=== PATIENT | male | born 1945 | race Caucasian/White ===

== ENCOUNTER 2016-10-13 02:03 | Inpatient (IN) | payer OTHER ==
[~2016-10-13] VITALS: Ht 185.4 cm; Wt 79.1 kg
[2016-10-13] VITALS (24 sets, daily range): BP systolic 81–140; BP diastolic 49–68; PULSE 80–87; RESP 10–24; Ht 185.4 cm; Wt 79.1 kg
[2016-10-13] MEDS ORDERED: VAN120L GTB (03:31)
[2016-10-13] MEDS ORDERED: ENOX80DI2 SC (03:31)
[2016-10-13] MEDS ORDERED: [UNRECOGNIZED DRUG - CODE] PO (03:31)
[2016-10-13] MEDS ORDERED: PRED10TA GTB (03:31)
[2016-10-13] MEDS ORDERED: ALBU2.5V3 NEB ×2 (03:31)
[2016-10-13] MEDS ORDERED: LISI2.5T59 GTB (03:31)
[2016-10-13] MEDS ORDERED: ONDA4SOL2 IV (03:31)
[2016-10-13] MEDS ORDERED: [UNRECOGNIZED DRUG - CODE] IV (03:31)
[2016-10-13] MEDS ORDERED: LACT1CAP57 GTB (03:31)
[2016-10-13] MEDS ORDERED: LANS30CA GTB (03:31)
[2016-10-13] MEDS ORDERED: DOCU-159 GTB (03:31)
[2016-10-13] MEDS ORDERED: [UNRECOGNIZED DRUG - CODE] IV (03:31)
[2016-10-13] MEDS ORDERED: ALLO300T46 GTB (03:31)
[2016-10-13] MEDS ORDERED: MORP2DIS2 IV (03:31)
[2016-10-13] MEDS ORDERED: POLY17PO6 PO (03:31)
[2016-10-13] MEDS ORDERED: IPRA3AMP INHALATION (03:31)
[2016-10-13] MEDS ORDERED: ZINC50TA2 PO (03:31)
[2016-10-13] MEDS ORDERED: CARV3.1260 GTB (03:31)
[2016-10-13] MEDS ORDERED: NYST1POW22 TOPICAL (03:31)
[2016-10-13] MEDS ORDERED: ZINC220T GTB (03:31)
[2016-10-13] MEDS ORDERED: ACET325S PO (03:31)
[2016-10-13] MEDS ORDERED: ZOLP5TAB GTB (03:31)
[2016-10-13] MEDS ORDERED: CHLO118L3 ORAL (03:31)
[2016-10-13] MEDS ORDERED: ASCO500S2 GTB (03:31)
[2016-10-13] MEDS ORDERED: MELA5TAB4 G-TUBE (03:31)
[2016-10-13] MEDS ORDERED: LORAZEPAM 2 MG INJ IV PRN (04:00)
[2016-10-13] MEDS ORDERED: ZOLPIDEM 5 MG TAB GTB PRN (04:00)
[2016-10-13] MEDS ORDERED: ACETAMINOPHEN 650MG/20.3ML CUP PO PRN (04:00)
[2016-10-13] MEDS ORDERED: NON-FORMULARY/PATIENT OWN MED (Melatonin 5 MG) G-TUBE PRN (04:00)
[2016-10-13] MEDS ORDERED: ONDANSETRON 4 MG TAB GTB PRN (04:00)
[2016-10-13] MEDS ORDERED: NYSTATIN 15 GM POWDER BTL TOP PRN (04:00)
[2016-10-13] MEDS ORDERED: ALBUTEROL 0.083% (NEB) 2.5 MG/3 ML AMP NEB PRN (04:15)
[2016-10-13] MEDS ORDERED: GLUCOSE GEL 15 GRAM TUBE PO PRN ×2 (04:15)
[2016-10-13] MEDS ORDERED: DEXTROSE 50% 50 ML SYRINGE IV PRN ×2 (04:15)
[2016-10-13] MEDS ORDERED: GLUCOSE GEL 15 GRAM TUBE BUCCAL PRN (04:15)
[2016-10-13] MEDS ORDERED: GLUCAGON 1 MG INJ IM PRN (04:15)
[2016-10-13] MEDS ORDERED: ALBUTEROL/IPRATROPIUM (NEB) 3 ML AMP INH SCH (05:00)
[2016-10-13] MEDS: INSULIN ASPART [NOVOLOG] 3 ML PEN SC SCH ×3 (06:00→17:59)
[2016-10-13] MEDS: VANCOMYCIN HCL 250 MG/5ML POSYG GTB SCH ×3 (06:33→21:27)
[2016-10-13 07:58] LABS: ADD SCAN DIFF NO
[2016-10-13] MEDS ORDERED: ALBUTEROL 0.083% (NEB) 2.5 MG/3 ML AMP NEB SCH (08:00)
[2016-10-13 08:04] LABS: BASOPHILS % 0.2 % (0.0-2.0); EOSINOPHILS % 0.3 % (0.0-7.0); HEMATOCRIT 28.1 % (42.0-52.0); HEMOGLOBIN 8.9 g/dl (14.0-18.0); LYMPHOCYTES # 1.3 10^3/ul (0.8-2.9); MEAN CORPUSCULAR HEMOGLOBIN 30.3 pg (29.0-33.0); MEAN CORPUSCULAR HGB CONC 31.7 g/dl (32.0-37.0); MEAN CORPUSCULAR VOLUME 95.6 fl (82.0-101.0); MEAN PLATELET VOLUME 10.2 fl (7.4-10.4); MONOCYTE # 1.2 10^3/ul (0.3-0.9); MONOCYTES % 10.4 % (0.0-11.0); NEUTROPHILS % 75.3 % (39.0-77.0); PLATELET COUNT 262 10^3/UL (140-415); RED BLOOD COUNT 2.94 10^6/ul (4.70-6.10); RED CELL DISTRIBUTION WIDTH 14.3 % (11.5-14.5)
[2016-10-13 08:42] LABS: CALCIUM 8.6 mg/dl (8.4-10.2); CREATININE 1.09 mg/dl (0.61-1.24); POTASSIUM 3.4 mmol/L (3.5-5.1)
[2016-10-13] MEDS: DOCUSATE SODIUM 100 MG CAP PO SCH ×2 (09:00→21:11)
[2016-10-13] MEDS: POLYETHYLENE GLYCOL 17 GM PACKET PO SCH (09:00)
[2016-10-13] MEDS: LISINOPRIL 5 MG TAB GTB SCH ×2 (09:00→21:11)
[2016-10-13] MEDS: NYSTATIN 15 GM POWDER BTL TOP SCH (09:28)
[2016-10-13] MEDS: CHLORHEXIDINE GLUCONATE 15 ML UD CUP PO SCH ×2 (09:28→21:11)
[2016-10-13] MEDS: TRIMETHOPRIM/SULFAMETHOX (PO SYG) PO SCH (09:29)
[2016-10-13] MEDS: ACETAZOLAMIDE 500 MG INJ IV SCH (09:29)
[2016-10-13] MEDS: LACTOBACILLUS RHAMNOSUS CAP GTB SCH ×3 (09:29→21:11)
[2016-10-13] MEDS: ASCORBIC ACID 500 MG TAB GTB SCH ×2 (09:30→21:11)
[2016-10-13] MEDS: ALLOPURINOL 300 MG TAB GTB SCH (09:30)
[2016-10-13] MEDS: LANSOPRAZOLE 30 MG CAP GTB SCH (09:30)
[2016-10-13] MEDS: predniSONE 10 MG TAB GTB SCH (09:30)
[2016-10-13] MEDS: ZINC SULFATE 220 MG CAP GTB SCH (09:30)
[2016-10-13] MEDS: ENOXAPARIN 80 MG/0.8 ML SYG SC SCH ×2 (10:13→21:21)
[2016-10-13] MEDS ORDERED: IPRATROPIUM (HFA) 12.9 GM INHALER INH SCH (13:00)
[2016-10-13] MEDS: IPRATROPIUM (HFA) 12.9 GM INHALER INH SCH ×3 (13:42→19:33)
[2016-10-13] MEDS: ALBUTEROL 18 GM INHALER INH SCH ×3 (13:54→19:33)
--- NOTE | 2016-10-13 13:57 | CONS ---
Date/Time of Note Date/Time of Note DATE: 10/13/16 TIME: 13:53 Assessment/Plan Assessment/Plan Chief Complaint/Hosp Course Tx [place] for continuation of chemotherapy. Awake, looks comfortable, no fevers Abx: PO Vanco, Bactrim M/W/F Indwelling: Trach, PEG Assessment: 1. C dif colitis 2. S/p HCAP 3. Follicular lymphoma 4. Dysphagia 5. Drug induced M. gravis 6. Immunocompromised state Plan: Clinically stable, continue abx, f/u oncology rec-s, vent per pulmonary DW at bedside Problems: Consultation Date/Type/Reason Admit Date/Time Oct 13, 2016 at 02:03 Initial Consult Date Type of Consultation: ID Exam/Review of Systems Vital Signs Vitals Vital Signs Date Time Temp Pulse Resp B/P Pulse Ox O2 Delivery O2 Flow Rate FiO2 10/13/16 13:42 78 16 99 30 10/13/16 11:50 98.1 112/58 10/13/16 01:15 Mechanical Ventilator Trach Collar Intake and Output 10/12/16 10/12/16 10/13/16 15:00 23:00 07:00 Intake Total 60 ml Output Total 300 ml Balance -240 ml Results Result Diagram: 10/13/16 0703 10/13/16 0703 Results 24 hrs Laboratory Tests Test 10/13/16 07:03 10/13/16 11:49 White Blood Count 12.0 H Red Blood Count 2.94 L Hemoglobin 8.9 L Hematocrit 28.1 L Mean Corpuscular Volume 95.6 Mean Corpuscular Hemoglobin 30.3 Mean Corpuscular Hemoglobin Concent 31.7 L Red Cell Distribution Width 14.3 Platelet Count 262 Mean Platelet Volume 10.2 Neutrophils % 75.3 Lymphocytes % 11.0 L Monocytes % 10.4 Eosinophils % 0.3 Basophils % 0.2 Nucleated Red Blood Cells % 0.0 Neutrophils # 9.0 H Lymphocytes # 1.3 Monocytes # 1.2 H Eosinophils # 0.0 Basophils # 0.0 Nucleated Red Blood Cells # 0.0 Sodium Level 133 L Potassium Level 3.4 L Chloride Level 99 Carbon Dioxide Level 30 Anion Gap 7 L Blood Urea Nitrogen 39 #H Creatinine 1.09 Glucose Level 95 # Calcium Level 8.6 Bedside Glucose 155 Medications Medications Current Medications Acetaminophen (Tylenol Liquid) 650 mg Q4H PRN PO PAIN OR TEMP ABOVE 38C; Start 10/13/16 at 04:00 Acetazolamide (Diamox) 500 mg DAILY IV Last administered on 10/13/16 09:29; Admin Dose 500 MG; Start 10/13/16 at 09:00 Allopurinol (Zyloprim) 300 mg DAILY GTB Last administered on 10/13/16 09:30; Admin Dose 300 MG; Start 10/13/16 at 09:00 Ascorbic Acid (Vitamin C) 500 mg BID GTB Last administered on 10/13/16 09:30; Admin Dose 500 MG; Start 10/13/16 at 09:00 Carvedilol (Coreg) 3.125 mg BID GTB ; Start 10/13/16 at 09:00 Docusate Sodium (Colace) 100 mg BID PO ; Start 10/13/16 at 09:00 Enoxaparin Sodium (Lovenox) 70 mg Q12 SC Last administered on 10/13/16 10:13; Admin Dose 70 MG; Start 10/13/16 at 09:00 Lactobacillus Acidophilus/ Rhamnosus (Culturelle) 1 cap TID GTB Last administered on 10/13/16 09:29; Admin Dose 1 CAP; Start 10/13/16 at 09:00 Lansoprazole (Prevacid) 30 mg DAILY GTB Last administered on 10/13/16 09:30; Admin Dose 30 MG; Start 10/13/16 at 09:00 Lisinopril (Zestril) 2.5 mg BID GTB ; Start 10/13/16 at 09:00 Morphine Sulfate (morphine) 2 mg Q8H PRN IV PAIN; Start 10/13/16 at 04:00 Nystatin 1 applic DAILY TOP Last administered on 10/13/16 09:28; Admin Dose 1 APPLIC; Start 10/13/16 at 09:00 Nystatin 1 applic DAILY PRN TOP redness; Start 10/13/16 at 04:00 Ondansetron HCl (Zofran Tab) 4 mg Q8H PRN GTB NAUSEA AND/OR VOMITING; Start at 04:00 Polyethylene Glycol (Miralax) 17 gm DAILY PO ; Start 10/13/16 at 09:00 Prednisone (Prednisone) 10 mg DAILY GTB Last administered on 10/13/16 09:30; Admin Dose 10 MG; Start 10/13/16 at 09:00 Trimethoprim/ Sulfamethoxazole (Bactrim Susp) 20 ml MONWEDFRI PO Last administered on 10/13/16 09:29; Admin Dose 20 ML; Start 10/13/16 at 09:00 Zinc Sulfate (Zinc Sulfate) 220 mg DAILY GTB Last administered on 10/13/16 09: 30; Admin Dose 220 MG; Start 10/13/16 at 09:00 Zolpidem Tartrate (Ambien) 5 mg QHS PRN GTB INSOMNIA; Start 10/13/16 at 04:00 Chlorhexidine Gluconate (Peridex) 15 ml BID PO Last administered on 10/13/16 09:28; Admin Dose 15 ML; Start 10/13/16 at 09:00 Vancomycin HCl (Vancomycin Oral Syringe) 250 mg Q8 GTB Last administered on 06:33; Admin Dose 250 MG; Start 10/13/16 at 06:00 Insulin Aspart (Novolog Insulin Pen) NOVOLOG *MILD* ALGORI... Q6 SC Last administered on 10/13/16 11:58; Admin Dose 1 UNIT; Start 10/13/16 at 06:00 Miscellaneous Information 1 ea NOTE XX ; Start 10/13/16 at 04:15 Glucose (Glutose) 15 gm Q15M PRN PO DECREASED GLUCOSE; Start 10/13/16 at 04:15 Glucose (Glutose) 22.5 gm Q15M PRN PO DECREASED GLUCOSE; Start 10/13/16 at 04: 15 Dextrose (D50w Syringe) 25 ml Q15M PRN IV DECREASED GLUCOSE; Start 10/13/16 at 04:15 Dextrose (D50w Syringe) 50 ml Q15M PRN IV DECREASED GLUCOSE; Start 10/13/16 at 04:15 Glucagon (Glucagen) 1 mg Q15M PRN IM DECREASED GLUCOSE; Start 10/13/16 at 04:15 Glucose (Glutose) 15 gm Q15M PRN BUCCAL DECREASED GLUCOSE; Start 10/13/16 at 04 :15 Ipratropium [place] (Atrovent Hfa) 4 puff Q4 INH Last administered on 13:42; Admin Dose 4 PUFF; Start 10/13/16 at 13:00 Lorazepam (Ativan) 0.5 mg BID PRN PO ANXIETY; Start 10/13/16 at 12:00 Albuterol (Ventolin Hfa) 4 puff Q4 INH ; Start 10/13/16 at 13:35 TROY GONSALVES NP Oct 13, 2016 13:57
--- NOTE | 2016-10-13 14:26 | CONS ---
Date/Time of Note Date/Time of Note DATE: 10/13/16 TIME: 14:08 Assessment/Plan Assessment/Plan Chief Complaint/Hosp Course 71 yo with relapsed follicular lymphoma admitted to [place] after developing myasthenia gravis and respiratory failure s/p PD-1 inhibitor. Pt is now being admitted to [facility] for Rituxan dose #4. -proceed with Rituxan 375 mg/m2. benadryl premed given -labs reviewed -cont vent management approximately 40 min were spent at patient's bedside and in coordination of his care Problems: Consultation Date/Type/Reason Admit Date/Time Oct 13, 2016 at 02:03 Initial Consult Date October 12, 2016 Type of Consultation: hematology Reason for Consultation follicular lymphoma Referring Provider: MARILIN DE LEON MD 24 HR Interval Summary Free Text/Dictation 71 yo with relapsed/refractory Follicular lymphoma who started on a clinical trial at [facility] with an anti PD-1 monoclonal Ab. 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 He was treated with high doses of steroids, now on a slow taper, plasmapheresis, and required prolonged intubation. He was thus transferred to [facility] for trach and ventilatory support. Given his significant lymphoma disease burden patient was started on rituximab 3 weeks ago. He has now been transferred to [facility] for his 4th and final dose of Rituxan . Constitutional: other (weakness , SOB), poor po Exam/Review of Systems Vital Signs Vitals Vital Signs Date Time Temp Pulse Resp B/P Pulse Ox O2 Delivery O2 Flow Rate FiO2 10/13/16 13:42 78 16 99 30 10/13/16 11:50 98.1 112/58 10/13/16 01:15 Mechanical Ventilator Trach Collar Intake and Output 10/12/16 10/12/16 10/13/16 15:00 23:00 07:00 Intake Total 60 ml Output Total 300 ml Balance -240 ml Exam Constitutional: alert, distress, frail, non-verbal, oriented Psych: depression, no complaints Head: normocephalic Eyes: nl conjunctiva ENMT: nl external ears & nose Neck: non-tender, supple Respiratory: clear to auscultation, normal air movement Cardiovascular: regular rate and rhythm Gastrointestinal: soft Musculoskeletal: nl extremities to inspection, nl gait and stance Extremities: normal pulses Results Result Diagram: 10/13/16 0703 10/13/16 0703 Results 24 hrs Laboratory Tests Test 10/13/16 07:03 10/13/16 11:49 White Blood Count 12.0 H Red Blood Count 2.94 L Hemoglobin 8.9 L Hematocrit 28.1 L Mean Corpuscular Volume 95.6 Mean Corpuscular Hemoglobin 30.3 Mean Corpuscular Hemoglobin Concent 31.7 L Red Cell Distribution Width 14.3 Platelet Count 262 Mean Platelet Volume 10.2 Neutrophils % 75.3 Lymphocytes % 11.0 L Monocytes % 10.4 Eosinophils % 0.3 Basophils % 0.2 Nucleated Red Blood Cells % 0.0 Neutrophils # 9.0 H Lymphocytes # 1.3 Monocytes # 1.2 H Eosinophils # 0.0 Basophils # 0.0 Nucleated Red Blood Cells # 0.0 Sodium Level 133 L Potassium Level 3.4 L Chloride Level 99 Carbon Dioxide Level 30 Anion Gap 7 L Blood Urea Nitrogen 39 #H Creatinine 1.09 Glucose Level 95 # Calcium Level 8.6 Bedside Glucose 155 Medications Medications Current Medications Acetaminophen (Tylenol Liquid) 650 mg Q4H PRN PO PAIN OR TEMP ABOVE 38C; Start 10/13/16 at 04:00 Acetazolamide (Diamox) 500 mg DAILY IV Last administered on 10/13/16 09:29; Admin Dose 500 MG; Start 10/13/16 at 09:00 Allopurinol (Zyloprim) 300 mg DAILY GTB Last administered on 10/13/16 09:30; Admin Dose 300 MG; Start 10/13/16 at 09:00 Ascorbic Acid (Vitamin C) 500 mg BID GTB Last administered on 10/13/16 09:30; Admin Dose 500 MG; Start 10/13/16 at 09:00 Carvedilol (Coreg) 3.125 mg BID GTB ; Start 10/13/16 at 09:00 Docusate Sodium (Colace) 100 mg BID PO ; Start 10/13/16 at 09:00 Enoxaparin Sodium (Lovenox) 70 mg Q12 SC Last administered on 10/13/16 10:13; Admin Dose 70 MG; Start 10/13/16 at 09:00 Lactobacillus Acidophilus/ Rhamnosus (Culturelle) 1 cap TID GTB Last administered on 10/13/16 09:29; Admin Dose 1 CAP; Start 10/13/16 at 09:00 Lansoprazole (Prevacid) 30 mg DAILY GTB Last administered on 10/13/16 09:30; Admin Dose 30 MG; Start 10/13/16 at 09:00 Lisinopril (Zestril) 2.5 mg BID GTB ; Start 10/13/16 at 09:00 Morphine Sulfate (morphine) 2 mg Q8H PRN IV PAIN; Start 10/13/16 at 04:00 Nystatin 1 applic DAILY TOP Last administered on 10/13/16 09:28; Admin Dose 1 APPLIC; Start 10/13/16 at 09:00 Nystatin 1 applic DAILY PRN TOP redness; Start 10/13/16 at 04:00 Ondansetron HCl (Zofran Tab) 4 mg Q8H PRN GTB NAUSEA AND/OR VOMITING; Start at 04:00 Polyethylene Glycol (Miralax) 17 gm DAILY PO ; Start 10/13/16 at 09:00 Prednisone (Prednisone) 10 mg DAILY GTB Last administered on 10/13/16 09:30; Admin Dose 10 MG; Start 10/13/16 at 09:00 Trimethoprim/ Sulfamethoxazole (Bactrim Susp) 20 ml MONWEDFRI PO Last administered on 10/13/16 09:29; Admin Dose 20 ML; Start 10/13/16 at 09:00 Zinc Sulfate (Zinc Sulfate) 220 mg DAILY GTB Last administered on 10/13/16 09: 30; Admin Dose 220 MG; Start 10/13/16 at 09:00 Zolpidem Tartrate (Ambien) 5 mg QHS PRN GTB INSOMNIA; Start 10/13/16 at 04:00 Chlorhexidine Gluconate (Peridex) 15 ml BID PO Last administered on 10/13/16 09:28; Admin Dose 15 ML; Start 10/13/16 at 09:00 Vancomycin HCl (Vancomycin Oral Syringe) 250 mg Q8 GTB Last administered on 06:33; Admin Dose 250 MG; Start 10/13/16 at 06:00 Insulin Aspart (Novolog Insulin Pen) NOVOLOG *MILD* ALGORI... Q6 SC Last administered on 10/13/16 11:58; Admin Dose 1 UNIT; Start 10/13/16 at 06:00 Miscellaneous Information 1 ea NOTE XX ; Start 10/13/16 at 04:15 Glucose (Glutose) 15 gm Q15M PRN PO DECREASED GLUCOSE; Start 10/13/16 at 04:15 Glucose (Glutose) 22.5 gm Q15M PRN PO DECREASED GLUCOSE; Start 10/13/16 at 04: 15 Dextrose (D50w Syringe) 25 ml Q15M PRN IV DECREASED GLUCOSE; Start 10/13/16 at 04:15 Dextrose (D50w Syringe) 50 ml Q15M PRN IV DECREASED GLUCOSE; Start 10/13/16 at 04:15 Glucagon (Glucagen) 1 mg Q15M PRN IM DECREASED GLUCOSE; Start 10/13/16 at 04:15 Glucose (Glutose) 15 gm Q15M PRN BUCCAL DECREASED GLUCOSE; Start 10/13/16 at 04 :15 Ipratropium [place] (Atrovent Hfa) 4 puff Q4 INH Last administered on 13:42; Admin Dose 4 PUFF; Start 10/13/16 at 13:00 Lorazepam (Ativan) 0.5 mg BID PRN PO ANXIETY; Start 10/13/16 at 12:00 Albuterol (Ventolin Hfa) 4 puff Q4 INH Last administered on 10/13/16 13:54; Admin Dose 4 PUFF; Start 10/13/16 at 13:35 SCOTTIE HAQUE M.D. Oct 13, 2016 14:20
--- NOTE | 2016-10-13 14:26 | HP ---
Date/Time of Note Date/Time of Note DATE: 10/13/16 TIME: 14:13 Assessment/Plan VTE Prophylaxis VTE Prophylaxis Intervention: SCD's Lines/Catheters IV C[facility]ter Type (from [facility] Saline Lock Urinary Cath still in place: No Assessment/Plan Assessment/Plan -Follicular lymphoma. -Ventilator dependent respiratory failure -Myasthenia gravis -C. difficile colitis -Immunocompromise state Further recommendations based on clinical course. Plan of care discussed with Dr. Sorto. HPI/ROS Admit Date/Time Admit Date/Time Oct 13, 2016 at 02:03 Hx of Present Illness The patient is a 71-year-old gentleman with history of follicular lymphoma undergoing chemotherapy with Rituxan and indomethacin, patient was also started on clinical trials with anti PD1 monoclonal antibody at [facility]. Unfortunately patient developed myositis and myasthenia gravis, requiring tracheostomy with ventilatory support and G-tube placement patient was transferred from [facility] to [place] for respiratory management. Patient is followed by Dr. Crodova from hematology standpoint. Patient was followed by Dr. Ann at [facility] for C. difficile colitis in patient with immunocompromised state as well as pneumonia. Patient is admitted to [facility] for chemotherapy. ROS 12 point review of systems is negative unless mentioned in HPI PMH/Family/Social Past Medical History Per HPI Past Surgical History Per HPI Family History Significant Family History: no pertinent family hx Social History Alcohol Use: none Drug Use: none Exam/Review of Systems Vital Signs Vitals Vital Signs Date Time Temp Pulse Resp B/P Pulse Ox O2 Delivery O2 Flow Rate FiO2 10/13/16 13:42 78 16 99 30 10/13/16 11:50 98.1 112/58 10/13/16 01:15 Mechanical Ventilator Trach Collar Intake and Output 10/12/16 10/12/16 10/13/16 15:00 23:00 07:00 Intake Total 60 ml Output Total 300 ml Balance -240 ml Exam Constitutional: alert, oriented Head: atraumatic, normocephalic Neck: other (Tracheostomy) Respiratory: diminished breath sounds Cardiovascular: nl pulses, regular rate and rhythm Gastrointestinal: non-tender, other (G-tube, rectal tube), soft Musculoskeletal: other (Bilateral lower extremities weakness) Extremities: normal pulses Neurological: nl mental status Skin: other (Sacrum and bilateral heel redness) Labs Result Diagram: 10/13/1670210/13/16702 Medications Medications Current Medications Acetaminophen (Tylenol Liquid) 650 mg Q4H PRN PO PAIN OR TEMP ABOVE 38C; Start 10/13/16 at 04:00 Acetazolamide (Diamox) 500 mg DAILY IV Last administered on 10/13/16 09:29; Admin Dose 500 MG; Start 10/13/16 at 09:00 Allopurinol (Zyloprim) 300 mg DAILY GTB Last administered on 10/13/16 09:30; Admin Dose 300 MG; Start 10/13/16 at 09:00 Ascorbic Acid (Vitamin C) 500 mg BID GTB Last administered on 10/13/16 09:30; Admin Dose 500 MG; Start 10/13/16 at 09:00 Carvedilol (Coreg) 3.125 mg BID GTB ; Start 10/13/16 at 09:00 Docusate Sodium (Colace) 100 mg BID PO ; Start 10/13/16 at 09:00 Enoxaparin Sodium (Lovenox) 70 mg Q12 SC Last administered on 10/13/16 10:13; Admin Dose 70 MG; Start 10/13/16 at 09:00 Lactobacillus Acidophilus/ Rhamnosus (Culturelle) 1 cap TID GTB Last administered on 10/13/16 09:29; Admin Dose 1 CAP; Start 10/13/16 at 09:00 Lansoprazole (Prevacid) 30 mg DAILY GTB Last administered on 10/13/16 09:30; Admin Dose 30 MG; Start 10/13/16 at 09:00 Lisinopril (Zestril) 2.5 mg BID GTB ; Start 10/13/16 at 09:00 Morphine Sulfate (morphine) 2 mg Q8H PRN IV PAIN; Start 10/13/16 at 04:00 Nystatin 1 applic DAILY TOP Last administered on 10/13/16 09:28; Admin Dose 1 APPLIC; Start 10/13/16 at 09:00 Nystatin 1 applic DAILY PRN TOP redness; Start 10/13/16 at 04:00 Ondansetron HCl (Zofran Tab) 4 mg Q8H PRN GTB NAUSEA AND/OR VOMITING; Start at 04:00 Polyethylene Glycol (Miralax) 17 gm DAILY PO ; Start 10/13/16 at 09:00 Prednisone (Prednisone) 10 mg DAILY GTB Last administered on 10/13/16 09:30; Admin Dose 10 MG; Start 10/13/16 at 09:00 Trimethoprim/ Sulfamethoxazole (Bactrim Susp) 20 ml MONWEDFRI PO Last administered on 10/13/16 09:29; Admin Dose 20 ML; Start 10/13/16 at 09:00 Zinc Sulfate (Zinc Sulfate) 220 mg DAILY GTB Last administered on 10/13/16 09: 30; Admin Dose 220 MG; Start 10/13/16 at 09:00 Zolpidem Tartrate (Ambien) 5 mg QHS PRN GTB INSOMNIA; Start 10/13/16 at 04:00 Chlorhexidine Gluconate (Peridex) 15 ml BID PO Last administered on 10/13/16 09:28; Admin Dose 15 ML; Start 10/13/16 at 09:00 Vancomycin HCl (Vancomycin Oral Syringe) 250 mg Q8 GTB Last administered on 06:33; Admin Dose 250 MG; Start 10/13/16 at 06:00 Insulin Aspart (Novolog Insulin Pen) NOVOLOG *MILD* ALGORI... Q6 SC Last administered on 10/13/16 11:58; Admin Dose 1 UNIT; Start 10/13/16 at 06:00 Miscellaneous Information 1 ea NOTE XX ; Start 10/13/16 at 04:15 Glucose (Glutose) 15 gm Q15M PRN PO DECREASED GLUCOSE; Start 10/13/16 at 04:15 Glucose (Glutose) 22.5 gm Q15M PRN PO DECREASED GLUCOSE; Start 10/13/16 at 04: 15 Dextrose (D50w Syringe) 25 ml Q15M PRN IV DECREASED GLUCOSE; Start 10/13/16 at 04:15 Dextrose (D50w Syringe) 50 ml Q15M PRN IV DECREASED GLUCOSE; Start 10/13/16 at 04:15 Glucagon (Glucagen) 1 mg Q15M PRN IM DECREASED GLUCOSE; Start 10/13/16 at 04:15 Glucose (Glutose) 15 gm Q15M PRN BUCCAL DECREASED GLUCOSE; Start 10/13/16 at 04 :15 Ipratropium [place] (Atrovent Hfa) 4 puff Q4 INH Last administered on 13:42; Admin Dose 4 PUFF; Start 10/13/16 at 13:00 Lorazepam (Ativan) 0.5 mg BID PRN PO ANXIETY; Start 10/13/16 at 12:00 Albuterol (Ventolin Hfa) 4 puff Q4 INH Last administered on 10/13/16 13:54; Admin Dose 4 PUFF; Start 10/13/16 at 13:35 ELIN STERLING Oct 13, 2016 14:24
[2016-10-13] MEDS: LORAZEPAM 0.5 MG TAB PO PRN (18:00)
[2016-10-14] VITALS (23 sets, daily range): BP systolic 101–122; BP diastolic 58–65; PULSE 69–81; RESP 12–25
[2016-10-14] MEDS: INSULIN ASPART [NOVOLOG] 3 ML PEN SC SCH ×4 (00:49→17:59)
[2016-10-14] MEDS: morphine 2 MG INJ IV PRN (00:53)
[2016-10-14] MEDS: ALBUTEROL 18 GM INHALER INH SCH ×6 (01:05→21:07)
[2016-10-14] MEDS: IPRATROPIUM (HFA) 12.9 GM INHALER INH SCH ×6 (01:05→21:07)
[2016-10-14] MEDS: LORAZEPAM 0.5 MG TAB PO PRN ×2 (06:06→17:55)
[2016-10-14] MEDS: VANCOMYCIN HCL 250 MG/5ML POSYG GTB SCH ×3 (06:06→22:21)
[2016-10-14 07:35] LABS: ADD SCAN DIFF NO
[2016-10-14 07:39] LABS: BASOPHILS % 0.2 % (0.0-2.0); EOSINOPHILS # 0.1 10^3/ul (0.0-0.5); HEMATOCRIT 27.2 % (42.0-52.0); HEMOGLOBIN 8.8 g/dl (14.0-18.0); LYMPHOCYTES # 1.2 10^3/ul (0.8-2.9); LYMPHOCYTES % 14.4 % (15.0-51.0); MEAN CORPUSCULAR HEMOGLOBIN 30.7 pg (29.0-33.0); MEAN CORPUSCULAR HGB CONC 32.4 g/dl (32.0-37.0); MEAN CORPUSCULAR VOLUME 94.8 fl (82.0-101.0); MEAN PLATELET VOLUME 10.3 fl (7.4-10.4); MONOCYTES % 11.8 % (0.0-11.0); NEUTROPHIL # 5.6 10^3/ul (1.6-7.5); PLATELET COUNT 255 10^3/UL (140-415); RED BLOOD COUNT 2.87 10^6/ul (4.70-6.10); RED CELL DISTRIBUTION WIDTH 14.1 % (11.5-14.5); WHITE BLOOD COUNT 8.1 10^3/ul (4.8-10.8)
[2016-10-14 08:14] LABS: CALCIUM 8.5 mg/dl (8.4-10.2); CREATININE 0.99 mg/dl (0.61-1.24); POTASSIUM 3.5 mmol/L (3.5-5.1)
[2016-10-14] MEDS: NYSTATIN 15 GM POWDER BTL TOP SCH (09:00)
[2016-10-14] MEDS: DOCUSATE SODIUM 100 MG CAP PO SCH ×2 (09:00→20:53)
[2016-10-14] MEDS: POLYETHYLENE GLYCOL 17 GM PACKET PO SCH (09:00)
[2016-10-14] MEDS: ASCORBIC ACID 500 MG TAB GTB SCH ×2 (09:59→20:52)
[2016-10-14] MEDS: LANSOPRAZOLE 30 MG CAP GTB SCH (09:59)
[2016-10-14] MEDS: LACTOBACILLUS RHAMNOSUS CAP GTB SCH ×3 (09:59→20:52)
[2016-10-14] MEDS: ZINC SULFATE 220 MG CAP GTB SCH (09:59)
[2016-10-14] MEDS: CHLORHEXIDINE GLUCONATE 15 ML UD CUP PO SCH ×2 (09:59→20:53)
[2016-10-14] MEDS: ACETAZOLAMIDE 500 MG INJ IV SCH (09:59)
[2016-10-14] MEDS: ALLOPURINOL 300 MG TAB GTB SCH (09:59)
[2016-10-14] MEDS: predniSONE 10 MG TAB GTB SCH (09:59)
[2016-10-14] MEDS: LISINOPRIL 5 MG TAB GTB SCH ×2 (10:00→20:52)
[2016-10-14] MEDS: ENOXAPARIN 80 MG/0.8 ML SYG SC SCH (10:15)
--- NOTE | 2016-10-14 13:24 | PN ---
Date/Time of Note Date/Time of Note DATE: 10/14/16 TIME: 13:21 Assessment/Plan Lines/Catheters IV Catheter Type (from Nrs): Saline Lock Urinary Cath still in place: No Assessment/Plan Assessment/Plan -Follicular lymphoma. -Ventilator dependent respiratory failure -Myasthenia gravis -C. difficile colitis -Immunocompromise state Further recommendations based on clinical course. Plan of care discussed with Dr. Sorto. Subjective 24 Hr Interval Summary Free Text/Dictation Patient is scheduled for chemo- will be transferred to oncology floor. dw staff Constitutional: requiring O2 Exam/Review of Systems Vital Signs Vitals Vital Signs Date Time Temp Pulse Resp B/P Pulse Ox O2 Delivery O2 Flow Rate FiO2 10/14/16 12:41 69 10/14/16 11:34 98.5 19 119/58 99 10/14/16 11:15 30 10/13/16 01:15 Mechanical Ventilator Trach Collar Intake and Output 10/13/16 10/13/16 10/14/16 15:00 23:00 07:00 Intake Total 500 ml 623 ml Output Total 750 ml 750 ml Balance -250 ml -127 ml Exam Respiratory: diminished breath sounds Cardiovascular: nl pulses, regular rate and rhythm Gastrointestinal: non-tender, soft Musculoskeletal: nl extremities to inspection Extremities: normal pulses Results Result Diagram: 10/14/16 0650 10/14/16 0650 Results 24 hrs Laboratory Tests Test 10/14/16 00:44 10/14/16 06:50 Bedside Glucose 160 White Blood Count 8.1 # Red Blood Count 2.87 L Hemoglobin 8.8 L Hematocrit 27.2 L Mean Corpuscular Volume 94.8 Mean Corpuscular Hemoglobin 30.7 Mean Corpuscular Hemoglobin Concent 32.4 Red Cell Distribution Width 14.1 Platelet Count 255 Mean Platelet Volume 10.3 Neutrophils % 69.0 Lymphocytes % 14.4 L Monocytes % 11.8 H Eosinophils % 1.0 Basophils % 0.2 Nucleated Red Blood Cells % 0.0 Neutrophils # 5.6 Lymphocytes # 1.2 Monocytes # 1.0 H Eosinophils # 0.1 Basophils # 0.0 Nucleated Red Blood Cells # 0.0 Sodium Level 133 L Potassium Level 3.5 Chloride Level 98 Carbon Dioxide Level 33 H Anion Gap 6 L Blood Urea Nitrogen 39 H Creatinine 0.99 Glucose Level 119 Calcium Level 8.5 Medications Medications Current Medications Acetaminophen (Tylenol Liquid) 650 mg Q4H PRN PO PAIN OR TEMP ABOVE 38C; Start 10/13/16 at 04:00 Acetazolamide (Diamox) 500 mg DAILY IV Last administered on 10/14/16 09:59; Admin Dose 500 MG; Start 10/13/16 at 09:00 Allopurinol (Zyloprim) 300 mg DAILY GTB Last administered on 10/14/16 09:59; Admin Dose 300 MG; Start 10/13/16 at 09:00 Ascorbic Acid (Vitamin C) 500 mg BID GTB Last administered on 10/14/16 09:59; Admin Dose 500 MG; Start 10/13/16 at 09:00 Carvedilol (Coreg) 3.125 mg BID GTB Last administered on 10/14/16 10:00; Admin Dose 3.125 MG; Start 10/13/16 at 09:00 Docusate Sodium (Colace) 100 mg BID PO Last administered on 10/13/16 21:11; Admin Dose 100 MG; Start 10/13/16 at 09:00 Enoxaparin Sodium (Lovenox) 70 mg Q12 SC Last administered on 10/14/16 10:15; Admin Dose 70 MG; Start 10/13/16 at 09:00 Lactobacillus Acidophilus/ Rhamnosus (Culturelle) 1 cap TID GTB Last administered on 10/14/16 09:59; Admin Dose 1 CAP; Start 10/13/16 at 09:00 Lansoprazole (Prevacid) 30 mg DAILY GTB Last administered on 10/14/16 09:59; Admin Dose 30 MG; Start 10/13/16 at 09:00 Lisinopril (Zestril) 2.5 mg BID GTB Last administered on 10/14/16 10:00; Admin Dose 2.5 MG; Start 10/13/16 at 09:00 Morphine Sulfate (morphine) 2 mg Q8H PRN IV PAIN Last administered on 00:53; Admin Dose 2 MG; Start 10/13/16 at 04:00 Nystatin 1 applic DAILY TOP Last administered on 10/14/16 09:00; Admin Dose 1 APPLIC; Start 10/13/16 at 09:00 Nystatin 1 applic DAILY PRN TOP redness; Start 10/13/16 at 04:00 Ondansetron HCl (Zofran Tab) 4 mg Q8H PRN GTB NAUSEA AND/OR VOMITING; Start at 04:00 Polyethylene Glycol (Miralax) 17 gm DAILY PO ; Start 10/13/16 at 09:00 Prednisone (Prednisone) 10 mg DAILY GTB Last administered on 10/14/16 09:59; Admin Dose 10 MG; Start 10/13/16 at 09:00 Trimethoprim/ Sulfamethoxazole (Bactrim Susp) 20 ml MONWEDFRI PO Last administered on 10/13/16 09:29; Admin Dose 20 ML; Start 10/13/16 at 09:00 Zinc Sulfate (Zinc Sulfate) 220 mg DAILY GTB Last administered on 10/14/16 09: 59; Admin Dose 220 MG; Start 10/13/16 at 09:00 Zolpidem Tartrate (Ambien) 5 mg QHS PRN GTB INSOMNIA Last administered on 21:11; Admin Dose 5 MG; Start 10/13/16 at 04:00 Chlorhexidine Gluconate (Peridex) 15 ml BID PO Last administered on 10/14/16 09:59; Admin Dose 15 ML; Start 10/13/16 at 09:00 Vancomycin HCl (Vancomycin Oral Syringe) 250 mg Q8 GTB Last administered on 06:06; Admin Dose 250 MG; Start 10/13/16 at 06:00 Insulin Aspart (Novolog Insulin Pen) NOVOLOG *MILD* ALGORI... Q6 SC Last administered on 10/14/16 00:49; Admin Dose 1 UNIT; Start 10/13/16 at 06:00 Miscellaneous Information 1 ea NOTE XX ; Start 10/13/16 at 04:15 Glucose (Glutose) 15 gm Q15M PRN PO DECREASED GLUCOSE; Start 10/13/16 at 04:15 Glucose (Glutose) 22.5 gm Q15M PRN PO DECREASED GLUCOSE; Start 10/13/16 at 04: 15 Dextrose (D50w Syringe) 25 ml Q15M PRN IV DECREASED GLUCOSE; Start 10/13/16 at 04:15 Dextrose (D50w Syringe) 50 ml Q15M PRN IV DECREASED GLUCOSE; Start 10/13/16 at 04:15 Glucagon (Glucagen) 1 mg Q15M PRN IM DECREASED GLUCOSE; Start 10/13/16 at 04:15 Glucose (Glutose) 15 gm Q15M PRN BUCCAL DECREASED GLUCOSE; Start 10/13/16 at 04 :15 Ipratropium [place] (Atrovent Hfa) 4 puff Q4 INH Last administered on 09:05; Admin Dose 4 PUFF; Start 10/13/16 at 13:00 Lorazepam (Ativan) 0.5 mg BID PRN PO ANXIETY Last administered on 10/14/16 06: 06; Admin Dose 0.5 MG; Start 10/13/16 at 12:00 Albuterol (Ventolin Hfa) 4 puff Q4 INH Last administered on 10/14/16 09:05; Admin Dose 4 PUFF; Start 10/13/16 at 13:35 LIZETT LÓPEZ Oct 14, 2016 13:24
[2016-10-14] MEDS ORDERED: LIDOCAINE 1% (MPF) 5 ML VIAL SC ONE (14:00)
--- NOTE | 2016-10-14 14:16 | CONS ---
Date/Time of Note Date/Time of Note DATE: 10/14/16 TIME: 14:14 Assessment/Plan Assessment/Plan Chief Complaint/Hosp Course Subjective: Awake, looks comfortable, no fevers Abx: PO Vanco, Bactrim M/W/F Indwelling: Trach, PEG Physical examination: This is a chronically ill-appearing elderly man who is awake in no distress. Head atraumatic normocephalic, sclera nonicteric, bugle mucosa dry. Neck is supple tracheostomy present. Chest rise symmetrical breath sounds diminished basis. Heart S1-S2. Abdomen soft, bowel tones present , G-tube site clean. Extremities without cyanosis Assessment: 1. C dif colitis 2. S/p HCAP 3. Follicular lymphoma 4. Dysphagia 5. Drug induced M. gravis 6. Immunocompromised state Plan: Clinically stable, continue abx, f/u oncology rec-s, vent per pulmonary DW at bedside Discussed with staff Problems: Consultation Date/Type/Reason Admit Date/Time Oct 13, 2016 at 02:03 Type of Consultation: Infectious disease Referring Provider: MARILIN DE LEON MD Exam/Review of Systems Vital Signs Vitals Vital Signs Date Time Temp Pulse Resp B/P Pulse Ox O2 Delivery O2 Flow Rate FiO2 10/14/16 13:47 88 15 98 30 10/14/16 11:34 98.5 119/58 10/13/16 01:15 Mechanical Ventilator Trach Collar Intake and Output 10/13/16 10/13/16 10/14/16 15:00 23:00 07:00 Intake Total 500 ml 623 ml Output Total 750 ml 750 ml Balance -250 ml -127 ml Results Result Diagram: 10/14/16 0650 10/14/16 0650 Results 24 hrs Laboratory Tests Test 10/14/16 00:44 10/14/16 06:50 10/14/16 13:19 Bedside Glucose 160 164 White Blood Count 8.1 # Red Blood Count 2.87 L Hemoglobin 8.8 L Hematocrit 27.2 L Mean Corpuscular Volume 94.8 Mean Corpuscular Hemoglobin 30.7 Mean Corpuscular Hemoglobin Concent 32.4 Red Cell Distribution Width 14.1 Platelet Count 255 Mean Platelet Volume 10.3 Neutrophils % 69.0 Lymphocytes % 14.4 L Monocytes % 11.8 H Eosinophils % 1.0 Basophils % 0.2 Nucleated Red Blood Cells % 0.0 Neutrophils # 5.6 Lymphocytes # 1.2 Monocytes # 1.0 H Eosinophils # 0.1 Basophils # 0.0 Nucleated Red Blood Cells # 0.0 Sodium Level 133 L Potassium Level 3.5 Chloride Level 98 Carbon Dioxide Level 33 H Anion Gap 6 L Blood Urea Nitrogen 39 H Creatinine 0.99 Glucose Level 119 Calcium Level 8.5 Medications Medications Current Medications Acetaminophen (Tylenol Liquid) 650 mg Q4H PRN PO PAIN OR TEMP ABOVE 38C; Start 10/13/16 at 04:00 Acetazolamide (Diamox) 500 mg DAILY IV Last administered on 10/14/16 09:59; Admin Dose 500 MG; Start 10/13/16 at 09:00 Allopurinol (Zyloprim) 300 mg DAILY GTB Last administered on 10/14/16 09:59; Admin Dose 300 MG; Start 10/13/16 at 09:00 Ascorbic Acid (Vitamin C) 500 mg BID GTB Last administered on 10/14/16 09:59; Admin Dose 500 MG; Start 10/13/16 at 09:00 Carvedilol (Coreg) 3.125 mg BID GTB Last administered on 10/14/16 10:00; Admin Dose 3.125 MG; Start 10/13/16 at 09:00 Docusate Sodium (Colace) 100 mg BID PO Last administered on 10/13/16 21:11; Admin Dose 100 MG; Start 10/13/16 at 09:00 Enoxaparin Sodium (Lovenox) 70 mg Q12 SC Last administered on 10/14/16 10:15; Admin Dose 70 MG; Start 10/13/16 at 09:00 Lactobacillus Acidophilus/ Rhamnosus (Culturelle) 1 cap TID GTB Last administered on 10/14/16 13:21; Admin Dose 1 CAP; Start 10/13/16 at 09:00 Lansoprazole (Prevacid) 30 mg DAILY GTB Last administered on 10/14/16 09:59; Admin Dose 30 MG; Start 10/13/16 at 09:00 Lisinopril (Zestril) 2.5 mg BID GTB Last administered on 10/14/16 10:00; Admin Dose 2.5 MG; Start 10/13/16 at 09:00 Morphine Sulfate (morphine) 2 mg Q8H PRN IV PAIN Last administered on 00:53; Admin Dose 2 MG; Start 10/13/16 at 04:00 Nystatin 1 applic DAILY TOP Last administered on 10/14/16 09:00; Admin Dose 1 APPLIC; Start 10/13/16 at 09:00 Nystatin 1 applic DAILY PRN TOP redness; Start 10/13/16 at 04:00 Ondansetron HCl (Zofran Tab) 4 mg Q8H PRN GTB NAUSEA AND/OR VOMITING; Start at 04:00 Polyethylene Glycol (Miralax) 17 gm DAILY PO ; Start 10/13/16 at 09:00 Prednisone (Prednisone) 10 mg DAILY GTB Last administered on 10/14/16 09:59; Admin Dose 10 MG; Start 10/13/16 at 09:00 Trimethoprim/ Sulfamethoxazole (Bactrim Susp) 20 ml MONWEDFRI PO Last administered on 10/13/16 09:29; Admin Dose 20 ML; Start 10/13/16 at 09:00 Zinc Sulfate (Zinc Sulfate) 220 mg DAILY GTB Last administered on 10/14/16 09: 59; Admin Dose 220 MG; Start 10/13/16 at 09:00 Zolpidem Tartrate (Ambien) 5 mg QHS PRN GTB INSOMNIA Last administered on 21:11; Admin Dose 5 MG; Start 10/13/16 at 04:00 Chlorhexidine Gluconate (Peridex) 15 ml BID PO Last administered on 10/14/16 09:59; Admin Dose 15 ML; Start 10/13/16 at 09:00 Vancomycin HCl (Vancomycin Oral Syringe) 250 mg Q8 GTB Last administered on 13:21; Admin Dose 250 MG; Start 10/13/16 at 06:00 Insulin Aspart (Novolog Insulin Pen) NOVOLOG *MILD* ALGORI... Q6 SC Last administered on 10/14/16 13:26; Admin Dose 1 UNIT; Start 10/13/16 at 06:00 Miscellaneous Information 1 ea NOTE XX ; Start 10/13/16 at 04:15 Glucose (Glutose) 15 gm Q15M PRN PO DECREASED GLUCOSE; Start 10/13/16 at 04:15 Glucose (Glutose) 22.5 gm Q15M PRN PO DECREASED GLUCOSE; Start 10/13/16 at 04: 15 Dextrose (D50w Syringe) 25 ml Q15M PRN IV DECREASED GLUCOSE; Start 10/13/16 at 04:15 Dextrose (D50w Syringe) 50 ml Q15M PRN IV DECREASED GLUCOSE; Start 10/13/16 at 04:15 Glucagon (Glucagen) 1 mg Q15M PRN IM DECREASED GLUCOSE; Start 10/13/16 at 04:15 Glucose (Glutose) 15 gm Q15M PRN BUCCAL DECREASED GLUCOSE; Start 10/13/16 at 04 :15 Ipratropium [place] (Atrovent Hfa) 4 puff Q4 INH Last administered on 13:45; Admin Dose 4 PUFF; Start 10/13/16 at 13:00 Lorazepam (Ativan) 0.5 mg BID PRN PO ANXIETY Last administered on 10/14/16 06: 06; Admin Dose 0.5 MG; Start 10/13/16 at 12:00 Albuterol (Ventolin Hfa) 4 puff Q4 INH Last administered on 10/14/16 13:46; Admin Dose 4 PUFF; Start 10/13/16 at 13:35 TROY GONSALVES NP Oct 14, 2016 14:16
--- NOTE | 2016-10-14 15:12 | CONS ---
Date/Time of Note Date/Time of Note DATE: 10/14/16 TIME: 15:11 Assessment/Plan Assessment/Plan Chief Complaint/Hosp Course 71 yo with relapsed follicular lymphoma admitted to [facility] after developing myasthenia gravis and respiratory failure s/p PD-1 inhibitor. Pt is now being admitted to [facility] for Rituxan dose #4. -proceed with Rituxan 375 mg/m2. benadryl premed given. nurse is to administer this this evening -labs reviewed -cont vent management approximately 40 min were spent at patient's bedside and in coordination of his care Problems: Consultation Date/Type/Reason Admit Date/Time Oct 13, 2016 at 02:03 Initial Consult Date October 12, 2016 Type of Consultation: Hematology Reason for Consultation follicular lymphoma Referring Provider: MARILIN DE LEON MD 24 HR Interval Summary Free Text/Dictation pt is very anxious about when he is going to start his chemotherapy Exam/Review of Systems Vital Signs Vitals Vital Signs Date Time Temp Pulse Resp B/P Pulse Ox O2 Delivery O2 Flow Rate FiO2 10/14/16 15:06 86 12 98 30 10/14/16 11:34 98.5 119/58 10/13/16 01:15 Mechanical Ventilator Trach Collar Intake and Output 10/13/16 10/13/16 10/14/16 15:00 23:00 07:00 Intake Total 500 ml 623 ml Output Total 750 ml 750 ml Balance -250 ml -127 ml Exam Constitutional: alert, distress Psych: anxiety Head: normocephalic Eyes: nl conjunctiva ENMT: nl external ears & nose Neck: non-tender, supple Respiratory: clear to auscultation, normal air movement Cardiovascular: regular rate and rhythm Gastrointestinal: soft Musculoskeletal: nl extremities to inspection, nl gait and stance Results Result Diagram: 10/14/16 0650 10/14/16 0650 Results 24 hrs Laboratory Tests Test 10/14/16 00:44 10/14/16 06:50 10/14/16 13:19 Bedside Glucose 160 164 White Blood Count 8.1 # Red Blood Count 2.87 L Hemoglobin 8.8 L Hematocrit 27.2 L Mean Corpuscular Volume 94.8 Mean Corpuscular Hemoglobin 30.7 Mean Corpuscular Hemoglobin Concent 32.4 Red Cell Distribution Width 14.1 Platelet Count 255 Mean Platelet Volume 10.3 Neutrophils % 69.0 Lymphocytes % 14.4 L Monocytes % 11.8 H Eosinophils % 1.0 Basophils % 0.2 Nucleated Red Blood Cells % 0.0 Neutrophils # 5.6 Lymphocytes # 1.2 Monocytes # 1.0 H Eosinophils # 0.1 Basophils # 0.0 Nucleated Red Blood Cells # 0.0 Sodium Level 133 L Potassium Level 3.5 Chloride Level 98 Carbon Dioxide Level 33 H Anion Gap 6 L Blood Urea Nitrogen 39 H Creatinine 0.99 Glucose Level 119 Calcium Level 8.5 Medications Medications Current Medications Acetaminophen (Tylenol Liquid) 650 mg Q4H PRN PO PAIN OR TEMP ABOVE 38C; Start 10/13/16 at 04:00 Acetazolamide (Diamox) 500 mg DAILY IV Last administered on 10/14/16 09:59; Admin Dose 500 MG; Start 10/13/16 at 09:00 Allopurinol (Zyloprim) 300 mg DAILY GTB Last administered on 10/14/16 09:59; Admin Dose 300 MG; Start 10/13/16 at 09:00 Ascorbic Acid (Vitamin C) 500 mg BID GTB Last administered on 10/14/16 09:59; Admin Dose 500 MG; Start 10/13/16 at 09:00 Carvedilol (Coreg) 3.125 mg BID GTB Last administered on 10/14/16 10:00; Admin Dose 3.125 MG; Start 10/13/16 at 09:00 Docusate Sodium (Colace) 100 mg BID PO Last administered on 10/13/16 21:11; Admin Dose 100 MG; Start 10/13/16 at 09:00 Enoxaparin Sodium (Lovenox) 70 mg Q12 SC Last administered on 10/14/16 10:15; Admin Dose 70 MG; Start 10/13/16 at 09:00 Lactobacillus Acidophilus/ Rhamnosus (Culturelle) 1 cap TID GTB Last administered on 10/14/16 13:21; Admin Dose 1 CAP; Start 10/13/16 at 09:00 Lansoprazole (Prevacid) 30 mg DAILY GTB Last administered on 10/14/16 09:59; Admin Dose 30 MG; Start 10/13/16 at 09:00 Lisinopril (Zestril) 2.5 mg BID GTB Last administered on 10/14/16 10:00; Admin Dose 2.5 MG; Start 10/13/16 at 09:00 Morphine Sulfate (morphine) 2 mg Q8H PRN IV PAIN Last administered on 00:53; Admin Dose 2 MG; Start 10/13/16 at 04:00 Nystatin 1 applic DAILY TOP Last administered on 10/14/16 09:00; Admin Dose 1 APPLIC; Start 10/13/16 at 09:00 Nystatin 1 applic DAILY PRN TOP redness; Start 10/13/16 at 04:00 Ondansetron HCl (Zofran Tab) 4 mg Q8H PRN GTB NAUSEA AND/OR VOMITING; Start at 04:00 Polyethylene Glycol (Miralax) 17 gm DAILY PO ; Start 10/13/16 at 09:00 Prednisone (Prednisone) 10 mg DAILY GTB Last administered on 10/14/16 09:59; Admin Dose 10 MG; Start 10/13/16 at 09:00 Trimethoprim/ Sulfamethoxazole (Bactrim Susp) 20 ml MONWEDFRI PO Last administered on 10/13/16 09:29; Admin Dose 20 ML; Start 10/13/16 at 09:00 Zinc Sulfate (Zinc Sulfate) 220 mg DAILY GTB Last administered on 10/14/16 09: 59; Admin Dose 220 MG; Start 10/13/16 at 09:00 Zolpidem Tartrate (Ambien) 5 mg QHS PRN GTB INSOMNIA Last administered on 21:11; Admin Dose 5 MG; Start 10/13/16 at 04:00 Chlorhexidine Gluconate (Peridex) 15 ml BID PO Last administered on 10/14/16 09:59; Admin Dose 15 ML; Start 10/13/16 at 09:00 Vancomycin HCl (Vancomycin Oral Syringe) 250 mg Q8 GTB Last administered on 13:21; Admin Dose 250 MG; Start 10/13/16 at 06:00 Insulin Aspart (Novolog Insulin Pen) NOVOLOG *MILD* ALGORI... Q6 SC Last administered on 10/14/16 13:26; Admin Dose 1 UNIT; Start 10/13/16 at 06:00 Miscellaneous Information 1 ea NOTE XX ; Start 10/13/16 at 04:15 Glucose (Glutose) 15 gm Q15M PRN PO DECREASED GLUCOSE; Start 10/13/16 at 04:15 Glucose (Glutose) 22.5 gm Q15M PRN PO DECREASED GLUCOSE; Start 10/13/16 at 04: 15 Dextrose (D50w Syringe) 25 ml Q15M PRN IV DECREASED GLUCOSE; Start 10/13/16 at 04:15 Dextrose (D50w Syringe) 50 ml Q15M PRN IV DECREASED GLUCOSE; Start 10/13/16 at 04:15 Glucagon (Glucagen) 1 mg Q15M PRN IM DECREASED GLUCOSE; Start 10/13/16 at 04:15 Glucose (Glutose) 15 gm Q15M PRN BUCCAL DECREASED GLUCOSE; Start 10/13/16 at 04 :15 Ipratropium [place] (Atrovent Hfa) 4 puff Q4 INH Last administered on 13:45; Admin Dose 4 PUFF; Start 10/13/16 at 13:00 Lorazepam (Ativan) 0.5 mg BID PRN PO ANXIETY Last administered on 10/14/16 06: 06; Admin Dose 0.5 MG; Start 10/13/16 at 12:00 Albuterol (Ventolin Hfa) 4 puff Q4 INH Last administered on 10/14/16 13:46; Admin Dose 4 PUFF; Start 10/13/16 at 13:35 SCOTTIE HAQUE M.D. Oct 14, 2016 15:12
[2016-10-14] MEDS ORDERED: MEPERIDINE 50 MG INJ IV PRN (16:00)
[2016-10-14] MEDS ORDERED: METHYLPREDNISOLONE 125 MG INJ IV PRN (16:00)
--- NOTE | 2016-10-14 17:59 | RADRPT ---
PROCEDURE: Ultrasound guidance for placement of needle in right upper extremity vein. CLINICAL INDICATION: Venous access. TECHNIQUE: Limited sonography of the right upper extremity was performed. Ultrasound images were recorded and stored in the patient's medical record. COMPARISON: None. FINDINGS: The ultrasound images demonstrate a patent right upper extremity vein. The PICC line was inserted b y the PICC line nurse. IMPRESSION: 1. Ultrasound guidance for a needle placement in a right upper extremity vein. 2. The visualized right upper extremity vein is patent. RPTAT: QQ .Babar Montgomery MD, MD Date Time Electronically viewed and signed by .Babar Montgomery MD, MD on 10/14/2016 17:59 .R/
--- NOTE | 2016-10-14 19:05 | RADRPT ---
PROCEDURE: XR Chest. CLINICAL INDICATION: Check PICC line position. TECHNIQUE: Single frontal view. COMPARISON: 10/10/2016. FINDINGS: There is a right arm PICC line with the tip in the cavoatrial junction region. The tracheostomy tub e remains in satisfactory position. There is mild atelectasis at the lung bases. The lungs are oth erwise clear. The heart size is normal. There is calcification in the aorta consistent with atherosclerosis. There is no pleural effusion. There is no pneumothorax. IMPRESSION: 1. Satisfactory position of right arm PICC line. 2. Mild atelectasis at the lung bases. 3. Atherosclerosis. RPTAT: QQ .Babar Montgomery MD, MD Date Time Electronically viewed and signed by .Babar Montgomery MD, MD on 10/14/2016 19:04 .R/
[2016-10-14] MEDS ORDERED: ACETAMINOPHEN 1000MG/100ML IV 65 ML IVPB SCH (20:30)
[2016-10-14] MEDS ORDERED: DIPHENHYDRAMINE 50 MG INJ IV SCH (20:30)
[2016-10-14] MEDS ORDERED: DIPHENHYDRAMINE 50 MG INJ IV PRN (21:00)
[2016-10-14] MEDS ORDERED: ONDANSETRON INJ 8 MG in SOD CHLORIDE 0.9% 50 ML IV PRN (21:00)
[2016-10-14] MEDS ORDERED: RITUXIMAB IV SCH (21:00)
[2016-10-14] MEDS ORDERED: SOD CHLORIDE 0.9% IV SCH (21:00)
[2016-10-14 22:43] LABS: INR 1.22; PROTIME 15.5 Sec (12.2-14.2); PT RATIO 1.2
[2016-10-15] VITALS (32 sets, daily range): BP systolic 90–142; BP diastolic 50–67; PULSE 63–81; RESP 12–19
[2016-10-15] MEDS: morphine 2 MG INJ IV PRN ×3 (00:16→23:10)
[2016-10-15] MEDS: IPRATROPIUM (HFA) 12.9 GM INHALER INH SCH ×6 (00:48→21:30)
[2016-10-15] MEDS: ALBUTEROL 18 GM INHALER INH SCH ×6 (00:48→21:30)
[2016-10-15] MEDS: SOD CHLORIDE 0.9% 1,000 ML IV SCH ×3 (00:52→15:31)
[2016-10-15] MEDS: INSULIN ASPART [NOVOLOG] 3 ML PEN SC SCH ×4 (06:00→17:31)
[2016-10-15] MEDS: VANCOMYCIN HCL 250 MG/5ML POSYG GTB SCH ×3 (06:47→21:15)
[2016-10-15] MEDS: CHLORHEXIDINE GLUCONATE 15 ML UD CUP PO SCH ×2 (08:27→21:15)
[2016-10-15] MEDS: ACETAZOLAMIDE 500 MG INJ IV SCH (08:27)
[2016-10-15] MEDS: ZINC SULFATE 220 MG CAP GTB SCH (08:27)
[2016-10-15] MEDS: LORAZEPAM 0.5 MG TAB PO PRN ×2 (08:28→20:24)
[2016-10-15] MEDS: LACTOBACILLUS RHAMNOSUS CAP GTB SCH ×3 (08:28→21:15)
[2016-10-15] MEDS: LANSOPRAZOLE 30 MG CAP GTB SCH (08:28)
[2016-10-15] MEDS: ASCORBIC ACID 500 MG TAB GTB SCH ×2 (08:28→21:15)
[2016-10-15] MEDS: predniSONE 10 MG TAB GTB SCH (08:28)
[2016-10-15] MEDS: ALLOPURINOL 300 MG TAB GTB SCH (08:28)
[2016-10-15] MEDS: POLYETHYLENE GLYCOL 17 GM PACKET PO SCH (08:29)
[2016-10-15] MEDS: LISINOPRIL 5 MG TAB GTB SCH ×2 (08:29→21:16)
[2016-10-15] MEDS: DOCUSATE SODIUM 100 MG CAP PO SCH ×2 (08:29→21:00)
[2016-10-15 09:10] LABS: INR 1.19; PROTIME 15.2 Sec (12.2-14.2); PT RATIO 1.2
[2016-10-15] MEDS ORDERED: SOD CHLORIDE 0.9% 100 ML ONE (11:36)
--- NOTE | 2016-10-15 12:30 | PN ---
Date/Time of Note Date/Time of Note DATE: 10/15/16 TIME: 12:28 Assessment/Plan VTE Prophylaxis VTE Prophylaxis Intervention: SCD's Lines/Catheters IV Catheter Type (from Nrsg): PICC Line Central line still needed: Yes Urinary Cath still in place: No Assessment/Plan Chief Complaint/Hosp Course Patient denies any nausea vomiting, blood sugar is well controlled. Assessment/Plan -Follicular lymphoma. -Ventilator dependent respiratory failure -Myasthenia gravis -C. difficile colitis -Immunocompromise state Further recommendations based on clinical course. Plan of care discussed with Dr. Sorto. Problems: Exam/Review of Systems Vital Signs Vitals Vital Signs Date Time Temp Pulse Resp B/P Pulse Ox O2 Delivery O2 Flow Rate FiO2 10/15/16 11:47 97 12 100 30 10/15/16 11:38 98.5 113/58 10/15/16 06:03 Mechanical Ventilator Intake and Output 10/14/16 10/14/16 10/15/16 15:00 23:00 07:00 Intake Total 804 ml Balance 804 ml Exam Constitutional: alert, oriented Head: atraumatic, normocephalic Neck: other (Tracheostomy) Respiratory: diminished breath sounds Cardiovascular: nl pulses, regular rate and rhythm Gastrointestinal: non-tender, other (G-tube, rectal tube), soft Musculoskeletal: other (Bilateral lower extremities weakness) Extremities: normal pulses Neurological: nl mental status Skin: other (Sacrum and bilateral heel redness) Results Result Diagram: 10/14/16 0650 10/14/16 0650 Results 24 hrs Laboratory Tests Test 10/14/16 13:19 10/14/16 17:59 10/14/16 22:20 10/15/16 00:21 Bedside Glucose 164 137 136 Prothrombin Time 15.5 H Prothrombin Time Ratio 1.2 INR International Normalized Ratio 1.22 Test 10/15/16 06:49 10/15/16 07:49 Bedside Glucose 123 Prothrombin Time 15.2 H Prothrombin Time Ratio 1.2 INR International Normalized Ratio 1.19 Medications Medications Current Medications Acetaminophen (Tylenol Liquid) 650 mg Q4H PRN PO PAIN OR TEMP ABOVE 38C; Start 10/13/16 at 04:00 Acetazolamide (Diamox) 500 mg DAILY IV Last administered on 10/15/16t 08:27; Admin Dose 500 MG; Start 10/13/16 at 09:00 Allopurinol (Zyloprim) 300 mg DAILY GTB Last administered on 10/15/16 08:28; Admin Dose 300 MG; Start 10/13/16 at 09:00 Ascorbic Acid (Vitamin C) 500 mg BID GTB Last administered on 10/15/16 08:28; Admin Dose 500 MG; Start 10/13/16 at 09:00 Carvedilol (Coreg) 3.125 mg BID GTB Last administered on 10/15/16 08:28; Admin Dose 3.125 MG; Start 10/13/16 at 09:00 Docusate Sodium (Colace) 100 mg BID PO Last administered on 10/13/16 21:11; Admin Dose 100 MG; Start 10/13/16 at 09:00 Lactobacillus Acidophilus/ Rhamnosus (Culturelle) 1 cap TID GTB Last administered on 10/15/16 08:28; Admin Dose 1 CAP; Start 10/13/16 at 09:00 Lansoprazole (Prevacid) 30 mg DAILY GTB Last administered on 10/15/16 08:28; Admin Dose 30 MG; Start 10/13/16 at 09:00 Lisinopril (Zestril) 2.5 mg BID GTB Last administered on 10/15/16 08:29; Admin Dose 2.5 MG; Start 10/13/16 at 09:00 Morphine Sulfate (morphine) 2 mg Q8H PRN IV PAIN Last administered on 00:16; Admin Dose 2 MG; Start 10/13/16 at 04:00 Nystatin 1 applic DAILY TOP Last administered on 10/14/16 09:00; Admin Dose 1 APPLIC; Start 10/13/16 at 09:00 Nystatin 1 applic DAILY PRN TOP redness; Start 10/13/16 at 04:00 Ondansetron HCl (Zofran Tab) 4 mg Q8H PRN GTB NAUSEA AND/OR VOMITING; Start at 04:00 Polyethylene Glycol (Miralax) 17 gm DAILY PO ; Start 10/13/16 at 09:00 Prednisone (Prednisone) 10 mg DAILY GTB Last administered on 10/15/16 08:28; Admin Dose 10 MG; Start 10/13/16 at 09:00 Trimethoprim/ Sulfamethoxazole (Bactrim Susp) 20 ml MONWEDFRI PO Last administered on 10/13/16 09:29; Admin Dose 20 ML; Start 10/13/16 at 09:00 Zinc Sulfate (Zinc Sulfate) 220 mg DAILY GTB Last administered on 10/15/16 08: 27; Admin Dose 220 MG; Start 10/13/16 at 09:00 Zolpidem Tartrate (Ambien) 5 mg QHS PRN GTB INSOMNIA Last administered on 21:11; Admin Dose 5 MG; Start 10/13/16 at 04:00 Chlorhexidine Gluconate (Peridex) 15 ml BID PO Last administered on 10/15/16 08:27; Admin Dose 15 ML; Start 10/13/16 at 09:00 Vancomycin HCl (Vancomycin Oral Syringe) 250 mg Q8 GTB Last administered on 06:47; Admin Dose 250 MG; Start 10/13/16 at 06:00 Insulin Aspart (Novolog Insulin Pen) NOVOLOG *MILD* ALGORI... Q6 SC Last administered on 10/14/16 13:26; Admin Dose 1 UNIT; Start 10/13/16 at 06:00 Miscellaneous Information 1 ea NOTE XX ; Start 10/13/16 at 04:15 Glucose (Glutose) 15 gm Q15M PRN PO DECREASED GLUCOSE; Start 10/13/16 at 04:15 Glucose (Glutose) 22.5 gm Q15M PRN PO DECREASED GLUCOSE; Start 10/13/16 at 04: 15 Dextrose (D50w Syringe) 25 ml Q15M PRN IV DECREASED GLUCOSE; Start 10/13/16 at 04:15 Dextrose (D50w Syringe) 50 ml Q15M PRN IV DECREASED GLUCOSE; Start 10/13/16 at 04:15 Glucagon (Glucagen) 1 mg Q15M PRN IM DECREASED GLUCOSE; Start 10/13/16 at 04:15 Glucose (Glutose) 15 gm Q15M PRN BUCCAL DECREASED GLUCOSE; Start 10/13/16 at 04 :15 Ipratropium [place] (Atrovent Hfa) 4 puff Q4 INH Last administered on 08:57; Admin Dose 4 PUFF; Start 10/13/16 at 13:00 Lorazepam (Ativan) 0.5 mg BID PRN PO ANXIETY Last administered on 10/15/16 08: 28; Admin Dose 0.5 MG; Start 10/13/16 at 12:00 Albuterol 4 puff 4 puff Q4 INH Last administered on 10/15/16 08:57; Admin Dose 4 PUFF; Start 10/13/16 at 13:35 Sodium Chloride 1,000 ml @ 100 mls/hr Q10H IV Last administered on 10/15/16 00:52; Admin Dose 100 MLS/HR; Start 10/14/16 at 19:00 Ondansetron HCl/ Sodium Chloride (Zofran Inj/NS) 54 ml @ 216 mls/hr Q8H PRN IV NAUSEA AND/OR VOMITING; Start 10/14/16 at 21:00 Diphenhydramine HCl (Benadryl) 25 mg Q2H PRN IV ALLERGIC REACTION; Start at 21:00 Meperidine HCl (Demerol) 50 mg Q4H PRN IV ALLERGIC RX TO RITUXAN; Start at 16:00 Methylprednisolone Sodium Succinate (Solu-Medrol) 60 mg Q2H PRN IV ALLERGIC RX TO RITUXAN; Start 10/14/16 at 16:00 IV Flush (NS 10 ml) 10 ml PRN PRN IV IV PROTOCOL; Start 10/14/16 at 19:00 ELIN STERLIGN Oct 15, 2016 12:30
[2016-10-15] MEDS: TRIMETHOPRIM/SULFAMETHOX (PO SYG) PO SCH (13:23)
[2016-10-15] MEDS: NYSTATIN 15 GM POWDER BTL TOP SCH (13:23)
--- NOTE | 2016-10-15 13:48 | CONS ---
Date/Time of Note Date/Time of Note DATE: 10/15/16 TIME: 13:46 Assessment/Plan Assessment/Plan Chief Complaint/Hosp Course 71 yo with relapsed follicular lymphoma admitted to [place] after developing myasthenia gravis and respiratory failure s/p PD-1 inhibitor. Pt was admitted to [facility] for Rituxan dose #4. Pt has since completed his chemotherapy -s/p Rituxan 375 mg/m2. -labs reviewed -cont vent management -pt may be transferred back to [facility] approximately 40 min were spent at patient's bedside and in coordination of his care Problems: Consultation Date/Type/Reason Admit Date/Time Oct 13, 2016 at 02:03 Initial Consult Date October 12, 2016 Type of Consultation: Hematology Reason for Consultation follicular lymphoma Referring Provider: MARILIN DE LEON MD 24 HR Interval Summary Free Text/Dictation patient received his Rituxan therapy. tolerated it well Exam/Review of Systems Vital Signs Vitals Vital Signs Date Time Temp Pulse Resp B/P Pulse Ox O2 Delivery O2 Flow Rate FiO2 10/15/16 12:57 75 10/15/16 11:47 12 100 30 10/15/16 11:38 98.5 113/58 10/15/16 06:03 Mechanical Ventilator Intake and Output 10/14/16 10/14/16 10/15/16 15:00 23:00 07:00 Intake Total 804 ml Balance 804 ml Exam Constitutional: alert, oriented Psych: no complaints Head: atraumatic, normocephalic Eyes: nl conjunctiva ENMT: nl external ears & nose Neck: non-tender, supple Respiratory: clear to auscultation Cardiovascular: regular rate and rhythm Gastrointestinal: soft Musculoskeletal: nl extremities to inspection, nl gait and stance Extremities: normal pulses Results Result Diagram: 10/14/16 0650 10/14/16 0650 Results 24 hrs Laboratory Tests Test 10/14/16 17:59 10/14/16 22:20 10/15/16 00:21 10/15/16 06:49 Bedside Glucose 137 136 123 Prothrombin Time 15.5 H Prothrombin Time Ratio 1.2 INR International Normalized Ratio 1.22 Test 10/15/16 07:49 Prothrombin Time 15.2 H Prothrombin Time Ratio 1.2 INR International Normalized Ratio 1.19 Medications Medications Current Medications Acetaminophen (Tylenol Liquid) 650 mg Q4H PRN PO PAIN OR TEMP ABOVE 38C; Start 10/13/16 at 04:00 Acetazolamide (Diamox) 500 mg DAILY IV Last administered on 10/15/16 08:27; Admin Dose 500 MG; Start 10/13/16 at 09:00 Allopurinol (Zyloprim) 300 mg DAILY GTB Last administered on 10/15/16 08:28; Admin Dose 300 MG; Start 10/13/16 at 09:00 Ascorbic Acid (Vitamin C) 500 mg BID GTB Last administered on 10/15/16 08:28; Admin Dose 500 MG; Start 10/13/16 at 09:00 Carvedilol (Coreg) 3.125 mg BID GTB Last administered on 10/15/16 08:28; Admin Dose 3.125 MG; Start 10/13/16 at 09:00 Docusate Sodium (Colace) 100 mg BID PO Last administered on 10/13/16 21:11; Admin Dose 100 MG; Start 10/13/16 at 09:00 Lactobacillus Acidophilus/ Rhamnosus (Culturelle) 1 cap TID GTB Last administered on 10/15/16 13:23; Admin Dose 1 CAP; Start 10/13/16 at 09:00 Lansoprazole (Prevacid) 30 mg DAILY GTB Last administered on 10/15/16 08:28; Admin Dose 30 MG; Start 10/13/16 at 09:00 Lisinopril (Zestril) 2.5 mg BID GTB Last administered on 10/15/16 08:29; Admin Dose 2.5 MG; Start 10/13/16 at 09:00 Morphine Sulfate (morphine) 2 mg Q8H PRN IV PAIN Last administered on 00:16; Admin Dose 2 MG; Start 10/13/16 at 04:00 Nystatin 1 applic DAILY TOP Last administered on 10/15/16 13:23; Admin Dose 1 APPLIC; Start 10/13/16 at 09:00 Nystatin 1 applic DAILY PRN TOP redness; Start 10/13/16 at 04:00 Ondansetron HCl (Zofran Tab) 4 mg Q8H PRN GTB NAUSEA AND/OR VOMITING; Start at 04:00 Polyethylene Glycol (Miralax) 17 gm DAILY PO ; Start 10/13/16 at 09:00 Prednisone (Prednisone) 10 mg DAILY GTB Last administered on 10/15/16 08:28; Admin Dose 10 MG; Start 10/13/16 at 09:00 Trimethoprim/ Sulfamethoxazole (Bactrim Susp) 20 ml MONWEDFRI PO Last administered on 10/15/16 13:23; Admin Dose 20 ML; Start 10/13/16 at 09:00 Zinc Sulfate (Zinc Sulfate) 220 mg DAILY GTB Last administered on 10/15/16 08: 27; Admin Dose 220 MG; Start 10/13/16 at 09:00 Zolpidem Tartrate (Ambien) 5 mg QHS PRN GTB INSOMNIA Last administered on 21:11; Admin Dose 5 MG; Start 10/13/16 at 04:00 Chlorhexidine Gluconate (Peridex) 15 ml BID PO Last administered on 10/15/16 08:27; Admin Dose 15 ML; Start 10/13/16 at 09:00 Vancomycin HCl (Vancomycin Oral Syringe) 250 mg Q8 GTB Last administered on 13:23; Admin Dose 250 MG; Start 10/13/16 at 06:00 Insulin Aspart (Novolog Insulin Pen) NOVOLOG *MILD* ALGORI... Q6 SC Last administered on 10/14/16 13:26; Admin Dose 1 UNIT; Start 10/13/16 at 06:00 Miscellaneous Information 1 ea NOTE XX ; Start 10/13/16 at 04:15 Glucose (Glutose) 15 gm Q15M PRN PO DECREASED GLUCOSE; Start 10/13/16 at 04:15 Glucose (Glutose) 22.5 gm Q15M PRN PO DECREASED GLUCOSE; Start 10/13/16 at 04: 15 Dextrose (D50w Syringe) 25 ml Q15M PRN IV DECREASED GLUCOSE; Start 10/13/16 at 04:15 Dextrose (D50w Syringe) 50 ml Q15M PRN IV DECREASED GLUCOSE; Start 10/13/16 at 04:15 Glucagon (Glucagen) 1 mg Q15M PRN IM DECREASED GLUCOSE; Start 10/13/16 at 04:15 Glucose (Glutose) 15 gm Q15M PRN BUCCAL DECREASED GLUCOSE; Start 10/13/16 at 04 :15 Ipratropium [place] (Atrovent Hfa) 4 puff Q4 INH Last administered on 13:38; Admin Dose 4 PUFF; Start 10/13/16 at 13:00 Lorazepam (Ativan) 0.5 mg BID PRN PO ANXIETY Last administered on 10/15/16 08: 28; Admin Dose 0.5 MG; Start 10/13/16 at 12:00 Albuterol 4 puff 4 puff Q4 INH Last administered on 10/15/16 13:38; Admin Dose 4 PUFF; Start 10/13/16 at 13:35 Sodium Chloride 1,000 ml @ 100 mls/hr Q10H IV Last administered on 10/15/16 00:52; Admin Dose 100 MLS/HR; Start 10/14/16 at 19:00 Ondansetron HCl/ Sodium Chloride (Zofran Inj/NS) 54 ml @ 216 mls/hr Q8H PRN IV NAUSEA AND/OR VOMITING; Start 10/14/16 at 21:00 Diphenhydramine HCl (Benadryl) 25 mg Q2H PRN IV ALLERGIC REACTION; Start at 21:00 Meperidine HCl (Demerol) 50 mg Q4H PRN IV ALLERGIC RX TO RITUXAN; Start at 16:00 Methylprednisolone Sodium Succinate (Solu-Medrol) 60 mg Q2H PRN IV ALLERGIC RX TO RITUXAN; Start 10/14/16 at 16:00 IV Flush (NS 10 ml) 10 ml PRN PRN IV IV PROTOCOL; Start 10/14/16 at 19:00 SCOTTIE HAQUE M.D. Oct 15, 2016 13:48
--- NOTE | 2016-10-15 16:11 | CONS ---
Date/Time of Note Date/Time of Note DATE: 10/15/16 TIME: 16:09 Assessment/Plan Assessment/Plan Chief Complaint/Hosp Course Subjective: Awake, looks comfortable, no fevers Abx: PO Vanco, Bactrim M/W/F Indwelling: Trach, PEG Physical examination: This is a chronically ill-appearing elderly man who is awake in no distress. Head atraumatic normocephalic, sclera nonicteric, bugle mucosa dry. Neck is supple tracheostomy present. Chest rise symmetrical breath sounds diminished basis. Heart S1-S2. Abdomen soft, bowel tones present , G-tube site clean. Extremities without cyanosis Assessment: 1. C dif colitis 2. S/p HCAP 3. Follicular lymphoma 4. Dysphagia 5. Drug induced M. gravis 6. Immunocompromised state Plan: Clinically stable, s/p Rituxan dose #4, continue present care, vent per pulmonary, oncology rec-s noted, ok tx back to [facility] staff Problems: Consultation Date/Type/Reason Admit Date/Time Oct 13, 2016 at 02:03 Type of Consultation: id Referring Provider: MARILIN DE LEON MD Exam/Review of Systems Vital Signs Vitals Vital Signs Date Time Temp Pulse Resp B/P Pulse Ox O2 Delivery O2 Flow Rate FiO2 10/15/16 15:41 98.4 78 19 140/66 100 10/15/16 15:32 30 10/15/16 06:03 Mechanical Ventilator Intake and Output 10/14/16 10/14/16 10/15/16 15:00 23:00 07:00 Intake Total 804 ml Balance 804 ml Results Result Diagram: 10/14/16 0650 10/14/16 0650 Results 24 hrs Laboratory Tests Test 10/14/16 17:59 10/14/16 22:20 10/15/16 00:21 10/15/16 06:49 Bedside Glucose 137 136 123 Prothrombin Time 15.5 H Prothrombin Time Ratio 1.2 INR International Normalized Ratio 1.22 Test 10/15/16 07:49 10/15/16 13:34 Prothrombin Time 15.2 H Prothrombin Time Ratio 1.2 INR International Normalized Ratio 1.19 Bedside Glucose 164 Medications Medications Current Medications Acetaminophen (Tylenol Liquid) 650 mg Q4H PRN PO PAIN OR TEMP ABOVE 38C; Start 10/13/16 at 04:00 Acetazolamide (Diamox) 500 mg DAILY IV Last administered on 10/15/16 08:27; Admin Dose 500 MG; Start 10/13/16 at 09:00 Allopurinol (Zyloprim) 300 mg DAILY GTB Last administered on 10/15/16 08:28; Admin Dose 300 MG; Start 10/13/16 at 09:00 Ascorbic Acid (Vitamin C) 500 mg BID GTB Last administered on 10/15/16 08:28; Admin Dose 500 MG; Start 10/13/16 at 09:00 Carvedilol (Coreg) 3.125 mg BID GTB Last administered on 10/15/16 08:28; Admin Dose 3.125 MG; Start 10/13/16 at 09:00 Docusate Sodium (Colace) 100 mg BID PO Last administered on 10/13/16 21:11; Admin Dose 100 MG; Start 10/13/16 at 09:00 Lactobacillus Acidophilus/ Rhamnosus (Culturelle) 1 cap TID GTB Last administered on 10/15/16 13:23; Admin Dose 1 CAP; Start 10/13/16 at 09:00 Lansoprazole (Prevacid) 30 mg DAILY GTB Last administered on 10/15/16 08:28; Admin Dose 30 MG; Start 10/13/16 at 09:00 Lisinopril (Zestril) 2.5 mg BID GTB Last administered on 10/15/16 08:29; Admin Dose 2.5 MG; Start 10/13/16 at 09:00 Morphine Sulfate (morphine) 2 mg Q8H PRN IV PAIN Last administered on 15:23; Admin Dose 2 MG; Start 10/13/16 at 04:00 Nystatin 1 applic DAILY TOP Last administered on 10/15/16 13:23; Admin Dose 1 APPLIC; Start 10/13/16 at 09:00 Nystatin 1 applic DAILY PRN TOP redness; Start 10/13/16 at 04:00 Ondansetron HCl (Zofran Tab) 4 mg Q8H PRN GTB NAUSEA AND/OR VOMITING; Start at 04:00 Polyethylene Glycol (Miralax) 17 gm DAILY PO ; Start 10/13/16 at 09:00 Prednisone (Prednisone) 10 mg DAILY GTB Last administered on 10/15/16 08:28; Admin Dose 10 MG; Start 10/13/16 at 09:00 Trimethoprim/ Sulfamethoxazole (Bactrim Susp) 20 ml MONWEDFRI PO Last administered on 10/15/16 13:23; Admin Dose 20 ML; Start 10/13/16 at 09:00 Zinc Sulfate (Zinc Sulfate) 220 mg DAILY GTB Last administered on 10/15/16 08: 27; Admin Dose 220 MG; Start 10/13/16 at 09:00 Zolpidem Tartrate (Ambien) 5 mg QHS PRN GTB INSOMNIA Last administered on 21:11; Admin Dose 5 MG; Start 10/13/16 at 04:00 Chlorhexidine Gluconate (Peridex) 15 ml BID PO Last administered on 10/15/16 08:27; Admin Dose 15 ML; Start 10/13/16 at 09:00 Vancomycin HCl (Vancomycin Oral Syringe) 250 mg Q8 GTB Last administered on 13:23; Admin Dose 250 MG; Start 10/13/16 at 06:00 Insulin Aspart (Novolog Insulin Pen) NOVOLOG *MILD* ALGORI... Q6 SC Last administered on 10/15/16 14:27; Admin Dose 1 UNIT; Start 10/13/16 at 06:00 Miscellaneous Information 1 ea NOTE XX ; Start 10/13/16 at 04:15 Glucose (Glutose) 15 gm Q15M PRN PO DECREASED GLUCOSE; Start 10/13/16 at 04:15 Glucose (Glutose) 22.5 gm Q15M PRN PO DECREASED GLUCOSE; Start 10/13/16 at 04: 15 Dextrose (D50w Syringe) 25 ml Q15M PRN IV DECREASED GLUCOSE; Start 10/13/16 at 04:15 Dextrose (D50w Syringe) 50 ml Q15M PRN IV DECREASED GLUCOSE; Start 10/13/16 at 04:15 Glucagon (Glucagen) 1 mg Q15M PRN IM DECREASED GLUCOSE; Start 10/13/16 at 04:15 Glucose (Glutose) 15 gm Q15M PRN BUCCAL DECREASED GLUCOSE; Start 10/13/16 at 04 :15 Ipratropium [place] (Atrovent Hfa) 4 puff Q4 INH Last administered on 13:38; Admin Dose 4 PUFF; Start 10/13/16 at 13:00 Lorazepam (Ativan) 0.5 mg BID PRN PO ANXIETY Last administered on 10/15/16 08: 28; Admin Dose 0.5 MG; Start 10/13/16 at 12:00 Albuterol 4 puff 4 puff Q4 INH Last administered on 10/15/16 13:38; Admin Dose 4 PUFF; Start 10/13/16 at 13:35 Sodium Chloride 1,000 ml @ 100 mls/hr Q10H IV Last administered on 10/15/16 15:31; Admin Dose 100 MLS/HR; Start 10/14/16 at 19:00 Ondansetron HCl/ Sodium Chloride (Zofran Inj/NS) 54 ml @ 216 mls/hr Q8H PRN IV NAUSEA AND/OR VOMITING; Start 10/14/16 at 21:00 Diphenhydramine HCl (Benadryl) 25 mg Q2H PRN IV ALLERGIC REACTION; Start at 21:00 Meperidine HCl (Demerol) 50 mg Q4H PRN IV ALLERGIC RX TO RITUXAN; Start at 16:00 Methylprednisolone Sodium Succinate (Solu-Medrol) 60 mg Q2H PRN IV ALLERGIC RX TO RITUXAN; Start 10/14/16 at 16:00 IV Flush (NS 10 ml) 10 ml PRN PRN IV IV PROTOCOL; Start 10/14/16 at 19:00 TROY GONSALVES NP Oct 15, 2016 16:11
--- NOTE | 2016-10-15 19:25 | DS ---
Date/Time of Note Date/Time of Note DATE: 10/15/16 TIME: 19:22 Discharge Summary Admission/Discharge Info Admit Date/Time Oct 13, 2016 at 02:03 Discharge Date/Time Discharge Diagnosis 1. C dif colitis 2. S/p HCAP 3. Follicular lymphoma 4. Dysphagia 5. Drug induced M. gravis 6. Immunocompromised state Patient Condition: Stable Hx of Present Illness The patient is a 71-year-old gentleman with history of follicular lymphoma undergoing chemotherapy with Rituxan and indomethacin, patient was also started on clinical trials with anti PD1 monoclonal antibody at [facility]. Unfortunately patient developed myositis and myasthenia gravis, requiring tracheostomy with ventilatory support and G-tube placement patient was transferred from [facility] to [place] for respiratory management. Patient is followed by Dr. Cordova from hematology standpoint. Patient was followed by Dr. Ann at [facility] for C. difficile colitis in patient with immunocompromised state as well as pneumonia. Patient is admitted to [facility] for chemotherapy. Hospital Course 71 yo with relapsed follicular lymphoma admitted to [place] after developing myasthenia gravis and respiratory failure s/p PD-1 inhibitor. Pt was admitted to [facility] for Rituxan dose #4. Pt has since completed his chemotherapy Home Meds Reported Medications Zolpidem Tartrate* (Ambien*) 5 Mg Tablet, 5 MG GTB QHS Y for INSOMNIA, #30 TAB 10/13/16 Zinc Sulfate* (Zinc Sulfate*) 220 Mg Tablet, 220 MG GTB DAILY, TAB 10/13/16 Zinc (Zinc) 50 Mg Tablet, 220 MG PO, TAB 10/13/16 Vancomycin Hcl* (Vancomycin Hcl* Liq) 8.33 Mg/Ml Soln, 250 MG GTB Q8, ML 10/13/16 Sulfamethoxazole-Trimethoprim (Bactrim) 10 Ml Soln, 20 ML PO MWF, VIAL DILUTE IN D5W 500 ML 10/13/16 Prednisone* (Prednisone*) 10 Mg Tab, 10 MG GTB DAILY, TAB 10/13/16 Polyethylene Glycol* (Miralax*) 17 Gm Powd.pack, 17 GM PO DAILY, #30 PACKET 10/13/16 Ondansetron HCl (Zofran) 4 Mg/5 Ml Solution, 4 MG IV Q8 Y for NAUSEA AND/OR VOMITING 10/13/16 Nystatin (Nystatin Powder) 1 Each Powder.ea., 1 APPLIC TOPICAL DAILY Y for redness, #1 BOTTLE 10/13/16 Nystatin (Nystatin Powder) 1 Each Powder.ea., 1 APPLIC TOPICAL DAILY, #1 BOTTLE 10/13/16 Morphine (Morphine) 2 Mg/1 Ml Disp.syrin, 2 MG IV Q8 Y for PAIN, EA 10/13/16 Melatonin (Melatonin) 5 Mg Tablet, 5 MG G-TUBE HS Y for INSOMNIA, TAB 10/13/16 Lorazepam (Ativan) 4 Mg/1 Ml Vial, 0.5 MG IV BID Y for ANXIETY, VIAL 10/13/16 Lisinopril* (Lisinopril*) 2.5 Mg Tablet, 2.5 MG GTB BID, #30 TAB 10/13/16 Lansoprazole* (Lansoprazole*) 30 Mg Capsule.dr, 30 MG GTB DAILY, CAP 10/13/16 Lactobacillus Rhamnosus* (Culturelle*) 1 Each Cap.sprink, 1 CAP GTB TID, CAP 10/13/16 Ipratropium-Albuterol (Ipratropium-Albuterol) 0.5-3 Mg/3 Ml Ampul.neb, 2.5 ML INHALATION Q4, #30 VIAL 10/13/16 Enoxaparin Sodium (Enoxaparin Sodium) 80 Mg/0.8 Ml Syringe, 70 MG SC Q12, SYR 10/13/16 Docusate Sodium* (Docusate Sodium*) 100 Mg Capsule, 100 MG GTB BID, #60 CAP 10/13/16 Chlorhexidine Gluconate* (Chlorhexidine Gluconate*) 118 Ml Liquid, 15 ML ORAL BID, ML 10/13/16 Carvedilol* (Carvedilol*) 3.125 Mg Tablet, 3.125 MG GTB BID, #60 TAB 10/13/16 Ascorbic Acid* (Ascorbic Acid*) 500 Mg/5 Ml Syrup, 500 MG GTB BID, #300 ML 10/13/16 Allopurinol* (Zyloprim*) 300 Mg Tablet, 300 MG GTB DAILY, TAB 10/13/16 Albuterol Sulfate* (Albuterol Sulfate* Neb) 0.083%-3 Ml Neb, 2.5 MG NEB Q6, #30 VIAL 10/13/16 Albuterol Sulfate* (Albuterol Sulfate* Neb) 0.083%-3 Ml Neb, 2.5 MG NEB Q4H, # 30 VIAL 10/13/16 Acetazolamide (Diamox) 500 Mg Soln, 500 MG IV DAILY, VIAL 10/13/16 Acetaminophen* (Acetaminophen* Susp) 325 Mg/10.15 Ml Solution, 650 MG PO Q4H Y for PAIN OR TEMP ABOVE 38C, ML 10/13/16 Primary Care Provider Chandler Sorto MD Pending Labs Laboratory Tests Test 10/14/16 22:20 10/15/16 00:21 10/15/16 06:49 10/15/16 07:49 Prothrombin Time 15.5Sec (12.2-14.2) 15.2Sec (12.2-14.2) Prothrombin Time Ratio 1.2 1.2 INR International Normalized Ratio 1.22 1.19 Bedside Glucose 136mg/dL (70-220) 123mg/dL (70-220) Test 10/15/16 13:34 10/15/16 17:31 Bedside Glucose 164mg/dL (70-220) 123mg/dL (70-220) ELIN STERLING Oct 15, 2016 19:25
[2016-10-16] MEDS: INSULIN ASPART [NOVOLOG] 3 ML PEN SC SCH (00:19)
== END 2016-10-16 00:52 | DRG 847 ==
LOC: TEL 02:03
PROVIDERS: ADMIT Internal Medicine; ATTEND Internal Medicine
PROC: 5A1945Z Respiratory Ventilation, 24-96 Consecutive Hours (ICD-10-PCS; 2016-10-13)
PROC: 3E04305 Introduction of Other Antineoplastic into Central Vein, Percutaneous Approach (ICD-10-PCS; principal; 2016-10-14)
PROC: 02HV33Z Insertion of Infusion Device into Superior Vena Cava, Percutaneous Approach (ICD-10-PCS; 2016-10-14)
DX: Z51.11 Encounter for antineoplastic chemotherapy (principal); C82.90 Follicular lymphoma, unspecified, unspecified site; Z99.11 Dependence on respirator [ventilator] status; J96.10 Chronic respiratory failure, unspecified whether with hypoxia or hypercapnia; A04.7 Enterocolitis due to Clostridium difficile; G70.00 Myasthenia gravis without (acute) exacerbation; T45.1X5S Adverse effect of antineoplastic and immunosuppressive drugs, sequela; Z93.0 Tracheostomy status
CPT/HCPCS: 36569; 71010; 76937; 80048; 82962; 85025; 85610; 87081; 94002; 94003; 94640; J1120; J9310; C1769; J0131; J1200; J1815; J2175; J2270; J2930; J7030; J7040; J7512

== ENCOUNTER 2016-11-01 22:01 | Inpatient (IN) | payer OTHER, MEDICARE ==
[~2016-11-01] VITALS: Ht 185.4 cm; Wt 81.0 kg
[~2016-11-01 22:01] MED LIST: ACET325S PO; ALBU2.5V3 NEB; ALLO300T46 GTB; ASCO500S2 GTB; CARV3.1260 GTB; CHLO118L3 ORAL; DOCU-159 GTB; ENOX80DI2 SC; IPRA3AMP INHALATION; LACT1CAP57 GTB; LANS30CA GTB; LISI2.5T59 GTB; MELA5TAB4 G-TUBE; MORP2DIS2 IV; NORepinephrine 8MG/250 ML (PMX 250 ML ONE; NYST1POW22 TOPICAL; ONDA4SOL2 IV; POLY17PO6 PO; PRED10TA GTB; VAN120L GTB; ZINC220T GTB; ZINC50TA2 PO; ZOLP5TAB GTB; [UNRECOGNIZED DRUG - CODE] IV; [UNRECOGNIZED DRUG - CODE] IV; [UNRECOGNIZED DRUG - CODE] PO
[2016-11-01 23:19] VITALS: PULSE 84
[2016-11-01 23:20] VITALS: RESP 18
[2016-11-01 23:30] VITALS: BP 111/55; PULSE 84; RESP 18
[2016-11-01 23:55] VITALS: RESP 20
[2016-11-02] VITALS (77 sets, daily range): BP systolic 68–161; BP diastolic 43–85; PULSE 67–101; RESP 14–28; Ht 185.4 cm; Wt 81.0 kg
[2016-11-02] MEDS ORDERED: VANCOMYCIN IV PER PHARMACY XX SCH (00:30)
[2016-11-02] MEDS ORDERED: SOD CHLORIDE 0.9% 1,000 ML IV ONE (00:30)
[2016-11-02] MEDS ORDERED: NORepinephrine 8MG/250 ML (PMX 250 ML IV SCH (00:30)
[2016-11-02] MEDS ORDERED: ALBUTEROL/IPRATROPIUM (NEB) 3 ML AMP HHN PRN (00:30)
[2016-11-02] MEDS ORDERED: ACETAMINOPHEN 650MG/20.3ML CUP GTB PRN (00:30)
[2016-11-02] MEDS ORDERED: PENDING SANTYL ORDER FOR WOUND CARE XX PRN ×2 (02:00→11:00)
[2016-11-02] MEDS: VANCOMYCIN 1 GM in NS 250 ML IVPB SCH ×2 (02:07→13:30)
[2016-11-02] MEDS: PIPER-TAZO 3.375 GM IV (PMX) 100 ML IVPB SCH ×4 (05:33→23:36)
[2016-11-02] MEDS: LANSOPRAZOLE 30 MG CAP NGT SCH (05:33)
[2016-11-02] MEDS ORDERED: PANTOPRAZOLE (EC) 40 MG TAB PO SCH (06:00)
[2016-11-02 06:45] LABS: ADD SCAN DIFF NO
[2016-11-02 06:46] LABS: BASOPHIL # 0.1 10^3/ul (0.0-0.1); BASOPHILS % 0.6 % (0.0-2.0); EOSINOPHILS # 0.2 10^3/ul (0.0-0.5); EOSINOPHILS % 1.5 % (0.0-7.0); HEMATOCRIT 26.1 % (42.0-52.0); HEMOGLOBIN 8.1 g/dl (14.0-18.0); LYMPHOCYTES # 1.7 10^3/ul (0.8-2.9); LYMPHOCYTES % 16.9 % (15.0-51.0); MEAN CORPUSCULAR HEMOGLOBIN 29.5 pg (29.0-33.0); MEAN CORPUSCULAR VOLUME 94.9 fl (82.0-101.0); MEAN PLATELET VOLUME 10.2 fl (7.4-10.4); MONOCYTE # 1.4 10^3/ul (0.3-0.9); MONOCYTES % 13.2 % (0.0-11.0); NEUTROPHIL # 6.8 10^3/ul (1.6-7.5); NEUTROPHILS % 66.5 % (39.0-77.0); PLATELET COUNT 270 10^3/UL (140-415); RED BLOOD COUNT 2.75 10^6/ul (4.70-6.10); RED CELL DISTRIBUTION WIDTH 13.3 % (11.5-14.5); WHITE BLOOD COUNT 10.2 10^3/ul (4.8-10.8)
[2016-11-02 07:05] LABS: CALCIUM 8.2 mg/dl (8.4-10.2); POTASSIUM 3.7 mmol/L (3.5-5.1)
[2016-11-02 08:11] LABS: AADO2 Arterial 71.3 mmHg (7.0-24.0); Arterial Base Excess 3.5 mmol/L (-3.0-3); Arterial COHb 0.3 % (0.0-3.0); Arterial Fraction of Oxyhgb 97.3 % (93.0-99.0); Arterial HCO3 25.8 mmol/L (22.0-26.0); Arterial MetHb 0.4 % (0.0-1.5); Arterial Total Hemglobin 8.5 g/dl (12.0-18.0); MODE VENT - AC
[2016-11-02] MEDS: LACTOBACILLUS RHAMNOSUS CAP GTB SCH ×3 (08:47→20:31)
[2016-11-02] MEDS: ACETAZOLAMIDE 500 MG INJ IV SCH (08:48)
[2016-11-02] MEDS: RIFAXIMIN 200 MG TAB PO SCH ×3 (08:48→20:32)
[2016-11-02] MEDS: FERROUS SULFATE 60 MG/ML 5ML CUP GTB SCH ×2 (08:48→20:32)
[2016-11-02] MEDS: SILVER SULFADIAZINE 1% 25 GM CR TOP SCH ×2 (08:49→22:01)
[2016-11-02] MEDS ORDERED: METHYLPREDNISOLONE 40 MG INJ IM ONE (09:00)
[2016-11-02] MEDS ORDERED: HYDROCORTISONE 1% 28 GM CR TOP ONE (09:00)
--- NOTE | 2016-11-02 10:55 | CONS ---
Date/Time of Note Date/Time of Note DATE: 11/02/16 TIME: 10:50 Assessment/Plan Assessment/Plan Chief Complaint/Hosp Course Assessment 1. Septic shock etiology unclear differential does include C. difficile colitis 2. Myasthenia gravis secondary to therapy for follicular lymphoma 3. Follicular lymphoma currently on Rituxan 4. Vent dependent respiratory failure was doing well until recent deterioration most recently was on mechanical ventilation for 24 hours. 5. Dysphagia with G-tube Plan 1. ID recommendations broad-spectrum antibiotics 2. Vasopressor support 3. Mechanical ventilation, not for weaning at present. 4. Resume tube feeding 5. DVT and GI prophylaxis 6. Hematology oncology recommendations regarding management of follicular lymphoma Disposition Continue ICU care Problems: Consultation Date/Type/Reason Admit Date/Time Nov 01, 2016 at 22:01 Date of Consultation: Nov 02, 2016 Reason for Consultation Respiratory failure Hx of Present Illness 71-year-old gentleman with a history of follicular lymphoma transferred from [facility] where he was originally admitted for ventilator weaning following hypoxemic respiratory failure secondary to myasthenia gravis status post PD1 inhibitor. Patient was doing well from pulmonary standpoint was apparently off mechanical ventilation for 24 hours yesterday when he experience low blood pressure was apparently asymptomatic however required transfer to intensive care unit for further monitoring and initiation of vasopressor support. Patient remains afebrile denies shortness of breath chest pain palpitations orthopnea or PND he is awake alert and oriented this morning. Review of his chart shows his hospital course complicated by C. difficile colitis and underlying immunocompromised condition secondary to chemotherapy for his lymphoma. In addition to tracheostomy patient has G-tube in place. As above. Past Medical History Follicular lymphoma Myasthenia gravis Hypoxemic respiratory failure with tracheostomy Dysphagia with G-tube Past Surgical History Tracheostomy G-tube placement Exam/Review of Systems Vital Signs Vitals Vital Signs Date Time Temp Pulse Resp B/P Pulse Ox O2 Delivery O2 Flow Rate FiO2 11/02/16 09:45 78 18 100 30 11/02/16 08:00 98.5 134/57 Mechanical Ventilator Intake and Output 11/01/16 11/01/16 11/02/16 14:59 22:59 06:59 Intake Total 600 ml Balance 600 ml Exam GENERAL: Elderly gentleman comfortable at rest mechanical ventilation awake alert appears comfortable VITAL SIGNS: per chart NECK: Supple. No JVD or lymphadenopathy. CARDIAC EXAM: S1, S2. No added sounds or murmurs. CHEST: Diminished air entry both lung [place] ABDOMEN: Soft, nontender. No guarding or rebound. EXTREMITIES: No cyanosis, clubbing or edema. NEUROLOGIC: Generalized weakness. Results Result Diagram: 11/02/16 0545 11/02/16 0545 Results 24 hrs Laboratory Tests Test 11/02/16 05:45 11/02/16 07:00 White Blood Count 10.2 Red Blood Count 2.75 L Hemoglobin 8.1 L Hematocrit 26.1 L Mean Corpuscular Volume 94.9 Mean Corpuscular Hemoglobin 29.5 Mean Corpuscular Hemoglobin Concent 31.0 L Red Cell Distribution Width 13.3 Platelet Count 270 Mean Platelet Volume 10.2 Neutrophils % 66.5 Lymphocytes % 16.9 Monocytes % 13.2 H Eosinophils % 1.5 Basophils % 0.6 Nucleated Red Blood Cells % 0.0 Neutrophils # 6.8 Lymphocytes # 1.7 Monocytes # 1.4 H Eosinophils # 0.2 Basophils # 0.1 Nucleated Red Blood Cells # 0.0 Sodium Level 139 Potassium Level 3.7 Chloride Level 102 Carbon Dioxide Level 27 Anion Gap 14 Blood Urea Nitrogen 25 H Creatinine 1.00 Glucose Level 94 Calcium Level 8.2 L Blood Gas Specimen Source Blood arterial Arterial Blood Date Drawn 11/02/2016 7:14:25 AM Arterial Blood pH (Temp corrected) 7.546 H Arterial Blood pCO2 (Temp correct) 30.5 L Arterial Blood pO2 (Temp corrected) 106.8 H Arterial Blood HCO3 25.8 Arterial Blood Base Excess 3.5 H Arterial Blood Oxygen Saturation 98.0 Tanner Test N/A Arterial Blood Gas Puncture Site Right Brachial Arterial Blood Carboxyhemoglobin 0.3 Arterial Blood Methemoglobin 0.4 Blood Gas A-a O2 Differential 71.3 H Oxyhemoglobin Percent 97.3 Total Hemoglobin 8.5 L Blood Gas Temperature 37.0 Blood Gas Respiration Rate 18.0 Blood Gas Actual Respiration Rate 18 Blood Gas Modality VENT - AC FiO2 30.0 Blood Gas Tidal Volume 550.0 Blood Gas Low PEEP Setting 5.0 Blood Gas Notified Whom RH Blood Gas Notified Time 11/02/2016 8:11:11 AM Medications Medications Current Medications Ferrous Sulfate (Feosol Liquid Cup) 300 mg BID GTB Last administered on t 08:48; Admin Dose 300 MG; Start 11/02/16 at 09:00 Acetaminophen (Tylenol Liquid) 650 mg Q4H PRN GTB PAIN AND OR ELEVATED TEMP; Start 11/02/16 at 00:30 Lansoprazole (Prevacid) 30 mg DAILY@06 NGT Last administered on 11/02/16 05:33 ; Admin Dose 30 MG; Start 11/02/16 at 06:00 Lactobacillus Acidophilus/ Rhamnosus 1 cap 1 cap TID GTB Last administered on 08:47; Admin Dose 1 CAP; Start 11/02/16 at 09:00 Norepinephrine 250 ml @ 1.875 mls/ hr TITRATE IV ; Start 11/02/16 at 00:30 Piperacillin Sod/ Tazobactam Sod (Zosyn 3.375gm/ 100 ml (Pmx)) 100 ml @ 200 mls /hr Q6 IVPB Last administered on 11/02/16 05:33; Admin Dose 200 MLS/HR; Start 11/02/16 at 06:00 Acetazolamide (Diamox) 500 mg DAILY IV Last administered on 11/02/16 08:48; Admin Dose 500 MG; Start 11/02/16 at 09:00 Rifaximin (Xifaxan) 200 mg TID PO Last administered on 11/02/16 08:48; Admin Dose 200 MG; Start 11/02/16 at 09:00 Silver Sulfadiazine 1 applic 1 applic BID TOP Last administered on 11/02/16 08 :49; Admin Dose 1 APPLIC; Start 11/02/16 at 09:00 Norepinephrine 16 mg/Dextrose 500 ml @ 1.87 mls/hr TITRATE IV Last administered on 11/02/16 02:27; Admin Dose 3.75 MLS/HR; Start 11/02/16 at 01:00 ; Status Future Hold Vancomycin HCl (Vancocin) 250 ml @ 125 mls/hr Q12H IVPB Last administered on 02:07; Admin Dose 125 MLS/HR; Start 11/02/16 at 01:30 Miscellaneous Information (Pending Santyl Order For Wound Care) This patient royal... PRN PRN XX WOUND CARE; Start 11/02/16 at 02:00 Miscellaneous Information (*Rx Drug Level Order Reminder*) VANCO TROUGH @ 1, 230 ON... ONCE ONCE XX ; Start 11/03/16 at 12:30; Stop 11/03/16 at 12:31 ROBLES ANDINO MD, [facility] Nov 02, 2016 10:55
[2016-11-02] MEDS ORDERED: COLLAGENASE 30 GM TUBE TOP PRN (11:00)
[2016-11-02] MEDS: METHYLPREDNISOLONE 40 MG INJ IV SCH (11:30)
[2016-11-02] MEDS: COLLAGENASE 30 GM TUBE TOP SCH (12:00)
--- NOTE | 2016-11-02 12:19 | HP ---
Date/Time of Note Date/Time of Note DATE: 11/02/16 TIME: 11:53 Assessment/Plan VTE Prophylaxis VTE Prophylaxis Intervention: SCD's Lines/Catheters IV Catheter Type (from [facility], [place]): Peripheral IV Urinary Cath still in place: No Assessment/Plan Assessment/Plan -Possible sepsis, will obtain urine and blood cultures, continue broad-spectrum antibiotics, Dr. Ann is following an infection disease consultation. Continue IV fluids, pressors, ICU care. -Ventilator dependent respiratory failure, Dr. Myers is following from pulmonology standpoint. -Follicular lymphoma, patient is followed by Dr. Cordova in oncology consultation. -Drug induced myasthenia gravis -Immunocompromise state -History of C. difficile colitis Further recommendations based on clinical course. Plan of care discussed with Dr. Sorto. HPI/ROS Admit Date/Time Admit Date/Time Nov 01, 2016 at 22:01 Hx of Present Illness The patient is 71-year-old gentleman known to me from previous admission. The patient was previously admitted for administration of chemotherapy with Rituxan for follicular lymphoma. Patient also had respiratory failure and dysphagia with G-tube that he developed as a result of myositis and myasthenia gravis after clinical trials with anti-PD1 monoclonal antibody treatment. Patient was also been treated for C. difficile colitis. Patient was in [facility] where he was weaned off ventilator during last 24 hours. Patient developed hypotension which did not improved with IV fluid boluses. Patient was transferred to intensive care unit at [facility] and started on Levophed for blood pressure control. No fever, nausea, vomiting, diarrhea were reported. Patient is currently awake alert denies any pain. He was placed on ventilatory support. Patient denies any chest pain, denies any shortness of breath. ROS 12 point review of system is negative unless mentioned in HPI. PMH/Family/Social Past Medical History Per HPI Past Surgical History Status post tracheostomy, status post G-tube placement Family History Significant Family History: no pertinent family hx Social History Alcohol Use: none Smoking Status: Never smoker Drug Use: none Exam/Review of Systems Vital Signs Vitals Vital Signs Date Time Temp Pulse Resp B/P Pulse Ox O2 Delivery O2 Flow Rate FiO2 11/02/16 09:45 78 18 100 30 11/02/16 08:00 98.5 134/57 Mechanical Ventilator Intake and Output 11/01/16 11/01/16 11/02/16 15:00 23:00 07:00 Intake Total 709.37 ml Balance 709.37 ml Exam Constitutional: alert, oriented Head: normocephalic Eyes: nl conjunctiva Neck: supple Respiratory: diminished breath sounds Cardiovascular: nl pulses Gastrointestinal: non-tender, other (G-tube, rectal tube), soft Musculoskeletal: muscle weakness Extremities: normal pulses Neurological: nl mental status Labs Result Diagram: 11/02/1654411/02/16544 Medications Medications Current Medications Ferrous Sulfate (Feosol Liquid Cup) 300 mg BID GTB Last administered on 08:48; Admin Dose 300 MG; Start 11/02/16 at 09:00 Acetaminophen (Tylenol Liquid) 650 mg Q4H PRN GTB PAIN AND OR ELEVATED TEMP; Start 11/02/16 at 00:30 Lansoprazole (Prevacid) 30 mg DAILY@06 NGT Last administered on 11/02/16 05:33 ; Admin Dose 30 MG; Start 11/02/16 at 06:00 Lactobacillus Acidophilus/ Rhamnosus 1 cap 1 cap TID GTB Last administered on 08:47; Admin Dose 1 CAP; Start 11/02/16 at 09:00 Norepinephrine 250 ml @ 1.875 mls/ hr TITRATE IV ; Start 11/02/16 at 00:30 Piperacillin Sod/ Tazobactam Sod (Zosyn 3.375gm/ 100 ml (Pmx)) 100 ml @ 200 mls /hr Q6 IVPB Last administered on 11/02/16 05:33; Admin Dose 200 MLS/HR; Start 11/02/16 at 06:00 Acetazolamide (Diamox) 500 mg DAILY IV Last administered on 11/02/16 08:48; Admin Dose 500 MG; Start 11/02/16 at 09:00 Rifaximin (Xifaxan) 200 mg TID PO Last administered on 11/02/16 08:48; Admin Dose 200 MG; Start 11/02/16 at 09:00 Silver Sulfadiazine 1 applic 1 applic BID TOP Last administered on 11/02/16 08 :49; Admin Dose 1 APPLIC; Start 11/02/16 at 09:00 Norepinephrine 16 mg/Dextrose 500 ml @ 1.87 mls/hr TITRATE IV Last administered on 11/02/16 02:27; Admin Dose 3.75 MLS/HR; Start 11/02/16 at 01:00 ; Status Future Hold Vancomycin HCl (Vancocin) 250 ml @ 125 mls/hr Q12H IVPB Last administered on 02:07; Admin Dose 125 MLS/HR; Start 11/02/16 at 01:30 Miscellaneous Information (*Rx Drug Level Order Reminder*) VANCO TROUGH @ 1, 230 ON... ONCE ONCE XX ; Start 11/03/16 at 12:30; Stop 11/03/16 at 12:31 Collagenase (Santyl) 1 applic DAILY TOP ; Start 11/02/16 at 12:00 Collagenase (Santyl) 1 applic PRN PRN TOP WOUND CARE; Start 11/02/16 at 11:00 Miscellaneous Information (Pending Santyl Order For Wound Care) This patient royal... PRN PRN XX WOUND CARE; Start 11/02/16 at 11:00 Methylprednisolone Sodium Succinate (Solu-Medrol) 20 mg DAILY IV ; Start at 11:30 ELIN STERLING Nov 02, 2016 12:08
--- NOTE | 2016-11-02 14:13 | CONS ---
Date/Time of Note Date/Time of Note DATE: 11/02/16 TIME: 14:12 Consultation Date/Type/Reason Admit Date/Time Nov 01, 2016 at 22:01 Type of Consultation: ID Reason for Consultation This is Dr. Junior Bautista dictating infectious disease consultation on Nicole Collins, date of admission 11/01/2016 date of consultation dictation 11/02/2016, reason for consultation is antibiotic management. Patient is a 71-year-old Citizen Of [place] male transferred from [facility] at [facility] to the ICU for sepsis. He was previously admitted for administration of chemotherapy with Rituxan for follicular lymphoma other problems included respiratory failure and dysphagia with G-tube in place. Patient developed respiratory failure secondary to myositis and myasthenia gravis after clinical trials with anti-PD 1 monoclonal antibody treatment. He is also been treated for C. difficile colitis. Patient was in [facility] where he was weaned off ventilator during the past 24 hours. However he developed hypotension and was transferred to the intensive care unit at [facility] where he was started on levo fed for blood pressure control. He is currently awake and responsive he is on ventilator support. Past medical history: Follicular lymphoma and myasthenia gravis. Past surgical history: Status post tracheostomy, status post G-tube placement. Family history noncontributory Social history he does not smoke drink or abuse drugs Allergies none to penicillin sulfa foods Medications as per chart Review of systems noncontributory. On admission his white count was 10.2 H&H 8.1 and 26.1 platelet count 270,000 BUN/creatinine 25/1.0. Urine cultures were done and patient was begun on vancomycin and Zosyn. On physical examination patient is an elderly gentleman who is resting comfortably. Vital signs are stable he is afebrile Skin without rash or icterus HEENT within normal limits Neck with tracheostomy in place without discharge. Chest decreased breath sounds at the bases Heart without murmur gallop Abdomen is soft nontender, G-tube in place, without organosplenomegaly or masses. Extremities without cyanosis clubbing or edema. Rectal genital exams deferred Neurological evaluation: Generalized weakness Impression plan patient is a 71-year-old male who presents now with increasing respiratory distress chest x-ray shows consolidation of left greater than right lower lobes possibly atelectasis but left lower lobe pneumonia with a parapneumonic effusion is difficult to exclude tracheostomy remains in good position interval right PICC line removal compared to 10/14/2016. Patient is currently on appropriate antibiotic therapy. Will do culture of the sputum. I will dictate my findings to Dr. Hernandez and Dr. Myers. 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 Social History Alcohol Use: none Smoking Status: Never smoker Drug Use: none Exam/Review of Systems Vital Signs Vitals Vital Signs Date Time Temp Pulse Resp B/P Pulse Ox O2 Delivery O2 Flow Rate FiO2 11/02/16 13:40 80 18 100 30 11/02/16 12:15 134/66 Mechanical Ventilator 11/02/16 12:00 98.5 Intake and Output 11/01/16 11/01/16 11/02/16 15:00 23:00 07:00 Intake Total 709.37 ml Balance 709.37 ml Results Result Diagram: 11/02/16 0545 11/02/16 0545 Results 24 hrs Laboratory Tests Test 11/02/16 05:45 11/02/16 07:00 White Blood Count 10.2 Red Blood Count 2.75 L Hemoglobin 8.1 L Hematocrit 26.1 L Mean Corpuscular Volume 94.9 Mean Corpuscular Hemoglobin 29.5 Mean Corpuscular Hemoglobin Concent 31.0 L Red Cell Distribution Width 13.3 Platelet Count 270 Mean Platelet Volume 10.2 Neutrophils % 66.5 Lymphocytes % 16.9 Monocytes % 13.2 H Eosinophils % 1.5 Basophils % 0.6 Nucleated Red Blood Cells % 0.0 Neutrophils # 6.8 Lymphocytes # 1.7 Monocytes # 1.4 H Eosinophils # 0.2 Basophils # 0.1 Nucleated Red Blood Cells # 0.0 Sodium Level 139 Potassium Level 3.7 Chloride Level 102 Carbon Dioxide Level 27 Anion Gap 14 Blood Urea Nitrogen 25 H Creatinine 1.00 Glucose Level 94 Calcium Level 8.2 L Blood Gas Specimen Source Blood arterial Arterial Blood Date Drawn 11/02/2016 7:14:25 AM Arterial Blood pH (Temp corrected) 7.546 H Arterial Blood pCO2 (Temp correct) 30.5 L Arterial Blood pO2 (Temp corrected) 106.8 H Arterial Blood HCO3 25.8 Arterial Blood Base Excess 3.5 H Arterial Blood Oxygen Saturation 98.0 Tanner Test N/A Arterial Blood Gas Puncture Site Right Brachial Arterial Blood Carboxyhemoglobin 0.3 Arterial Blood Methemoglobin 0.4 Blood Gas A-a O2 Differential 71.3 H Oxyhemoglobin Percent 97.3 Total Hemoglobin 8.5 L Blood Gas Temperature 37.0 Blood Gas Respiration Rate 18.0 Blood Gas Actual Respiration Rate 18 Blood Gas Modality VENT - AC FiO2 30.0 Blood Gas Tidal Volume 550.0 Blood Gas Low PEEP Setting 5.0 Blood Gas Notified Whom RH Blood Gas Notified Time 11/02/2016 8:11:11 AM Medications Medications Current Medications Ferrous Sulfate (Feosol Liquid Cup) 300 mg BID GTB Last administered on 08:48; Admin Dose 300 MG; Start 11/02/16 at 09:00 Acetaminophen (Tylenol Liquid) 650 mg Q4H PRN GTB PAIN AND OR ELEVATED TEMP; Start 11/02/16 at 00:30 Lansoprazole (Prevacid) 30 mg DAILY@06 NGT Last administered on 11/02/16 05:33 ; Admin Dose 30 MG; Start 11/02/16 at 06:00 Lactobacillus Acidophilus/ Rhamnosus 1 cap 1 cap TID GTB Last administered on 13:14; Admin Dose 1 CAP; Start 11/02/16 at 09:00 Norepinephrine 250 ml @ 1.875 mls/ hr TITRATE IV ; Start 11/02/16 at 00:30 Piperacillin Sod/ Tazobactam Sod (Zosyn 3.375gm/ 100 ml (Pmx)) 100 ml @ 200 mls /hr Q6 IVPB Last administered on 11/02/16 12:00; Admin Dose 200 MLS/HR; Start 11/02/16 at 06:00 Acetazolamide (Diamox) 500 mg DAILY IV Last administered on 11/02/16 08:48; Admin Dose 500 MG; Start 11/02/16 at 09:00 Rifaximin (Xifaxan) 200 mg TID PO Last administered on 11/02/16 13:14; Admin Dose 200 MG; Start 11/02/16 at 09:00 Silver Sulfadiazine 1 applic 1 applic BID TOP Last administered on 11/02/16 08 :49; Admin Dose 1 APPLIC; Start 11/02/16 at 09:00 Norepinephrine 16 mg/Dextrose 500 ml @ 1.87 mls/hr TITRATE IV Last administered on 11/02/16 02:27; Admin Dose 3.75 MLS/HR; Start 11/02/16 at 01:00 ; Status Future Hold Vancomycin HCl (Vancocin) 250 ml @ 125 mls/hr Q12H IVPB Last administered on 02:07; Admin Dose 125 MLS/HR; Start 11/02/16 at 01:30 Miscellaneous Information (*Rx Drug Level Order Reminder*) VANCO TROUGH @ 1, 230 ON... ONCE ONCE XX ; Start 11/03/16 at 12:30; Stop 11/03/16 at 12:31 Collagenase (Santyl) 1 applic DAILY TOP Last administered on 11/02/16 12:00; Admin Dose 1 APPLIC; Start 11/02/16 at 12:00 Collagenase (Santyl) 1 applic PRN PRN TOP WOUND CARE; Start 11/02/16 at 11:00 Miscellaneous Information (Pending Santyl Order For Wound Care) This patient royal... PRN PRN XX WOUND CARE; Start 11/02/16 at 11:00 Methylprednisolone Sodium Succinate (Solu-Medrol) 20 mg DAILY IV Last administered on 11/02/16 11:30; Admin Dose 20 MG; Start 11/02/16 at 11:30 JUNIOR BAUTISTA MD Nov 02, 2016 14:12
[2016-11-02 15:50] LABS: ADD UMIC YES; UR ASCORBIC ACID NEGATIVE (NEGATIVE); UR BILIRUBIN (Dip) NEGATIVE (NEGATIVE); UR BLOOD (Dip) NEGATIVE (NEGATIVE); UR CLARITY CLOUDY (CLEAR); UR COLOR YELLOW (YELLOW); UR GLUCOSE (Dip) NEGATIVE (NEGATIVE); UR KETONES (Dip) NEGATIVE (NEGATIVE); UR LEUKOCYTE ESTERASE (Dip) NEGATIVE Leu/ul (NEGATIVE); UR NITRITE (Dip) NEGATIVE (NEGATIVE); UR RBC 1 /HPF (0-5); UR TOTAL PROTEIN (Dip) NEGATIVE (NEGATIVE); UR TRANSITIONAL EPI CELL FEW /HPF (NONE SEEN); UR UROBILINOGEN (Dip) NEGATIVE (NEGATIVE)
[2016-11-02] MEDS ORDERED: NYSTATIN 30 GM POWDER BTL TOP ONE (20:00)
[2016-11-02] MEDS ORDERED: morphine 2 MG INJ IV PRN (20:00)
[2016-11-02] MEDS ORDERED: ONDANSETRON 4 MG TAB GTB PRN (20:00)
[2016-11-02] MEDS ORDERED: ZOLPIDEM 5 MG TAB PO PRN (20:00)
[2016-11-02] MEDS: CHLORHEXIDINE GLUCONATE 15 ML UD CUP MT SCH (20:32)
[2016-11-02] MEDS: LORAZEPAM 0.5 MG TAB PO SCH (20:32)
[2016-11-02] MEDS: ALBUTEROL 18 GM INHALER INH SCH (21:00)
[2016-11-02] MEDS ORDERED: ALBUTEROL/IPRATROPIUM (NEB) 3 ML AMP HHN SCH (21:00)
[2016-11-02] MEDS: IPRATROPIUM (HFA) 12.9 GM INHALER INH SCH (21:11)
[2016-11-02] MEDS: SODIUM CHLORIDE 1 GM TAB PO SCH (22:01)
[2016-11-03] VITALS (28 sets, daily range): BP systolic 99–149; BP diastolic 50–106; PULSE 73–101; RESP 15–37
[2016-11-03] MEDS: VANCOMYCIN 1 GM in NS 250 ML IVPB SCH ×2 (01:03→14:59)
[2016-11-03] MEDS: IPRATROPIUM (HFA) 12.9 GM INHALER INH SCH ×5 (01:25→17:22)
[2016-11-03] MEDS: ALBUTEROL 18 GM INHALER INH SCH ×5 (01:25→17:21)
[2016-11-03 06:06] LABS: ADD SCAN DIFF NO
[2016-11-03 06:18] LABS: BASOPHILS % 0.4 % (0.0-2.0); EOSINOPHILS # 0.1 10^3/ul (0.0-0.5); EOSINOPHILS % 1.8 % (0.0-7.0); HEMOGLOBIN 8.5 g/dl (14.0-18.0); LYMPHOCYTES # 1.6 10^3/ul (0.8-2.9); LYMPHOCYTES % 20.3 % (15.0-51.0); MEAN CORPUSCULAR HEMOGLOBIN 30.8 pg (29.0-33.0); MEAN CORPUSCULAR HGB CONC 32.7 g/dl (32.0-37.0); MEAN CORPUSCULAR VOLUME 94.2 fl (82.0-101.0); MEAN PLATELET VOLUME 9.6 fl (7.4-10.4); MONOCYTE # 1.1 10^3/ul (0.3-0.9); MONOCYTES % 14.3 % (0.0-11.0); NEUTROPHIL # 4.9 10^3/ul (1.6-7.5); NEUTROPHILS % 61.9 % (39.0-77.0); PLATELET COUNT 283 10^3/UL (140-415); RED BLOOD COUNT 2.76 10^6/ul (4.70-6.10); RED CELL DISTRIBUTION WIDTH 13.4 % (11.5-14.5); WHITE BLOOD COUNT 7.9 10^3/ul (4.8-10.8)
[2016-11-03] MEDS: LANSOPRAZOLE 30 MG CAP NGT SCH (06:20)
[2016-11-03] MEDS: PIPER-TAZO 3.375 GM IV (PMX) 100 ML IVPB SCH ×3 (06:21→17:51)
[2016-11-03 06:59] LABS: CALCIUM 8.6 mg/dl (8.4-10.2); CREATININE 0.91 mg/dl (0.61-1.24); MAGNESIUM 2.1 mg/dl (1.7-2.5); PHOSPHORUS 2.7 mg/dl (2.5-4.9); POTASSIUM 3.4 mmol/L (3.5-5.1)
[2016-11-03] MEDS ORDERED: LORATADINE 10 MG TAB GTB SCH (09:00)
--- NOTE | 2016-11-03 09:24 | RADRPT ---
PROCEDURE: XR Chest. CLINICAL INDICATION: Pneumonia TECHNIQUE: A single AP view of the chest was obtained. COMPARISON: Chest x-ray dated 11/01/2016 FINDINGS: A tracheostomy tube is in place. Lung volumes are low. There is a small left pleural effusion with consolidation of the left lower l obe. No pneumothorax is seen. The cardiomediastinal silhouette is within normal limits for size. Calcifications are seen within the aortic arch. The osseous structures are unremarkable. IMPRESSION: 1. Small left pleural effusion with left basilar atelectasis versus pneumonia. Overall, no signifi cant interval change. 2. Right basilar atelectasis. 3. Aortic atherosclerosis. 4. Tracheostomy tube in place. RPTAT: HH .Debbie Barakat MD, Date Time Electronically viewed and signed by .Debbie Barakat MD, on 11/03/2016 09:23 .G/
[2016-11-03] MEDS: CHLORHEXIDINE GLUCONATE 15 ML UD CUP MT SCH (09:34)
[2016-11-03] MEDS: FERROUS SULFATE 60 MG/ML 5ML CUP GTB SCH (09:34)
[2016-11-03] MEDS: ACETAZOLAMIDE 500 MG INJ IV SCH (09:35)
[2016-11-03] MEDS: METHYLPREDNISOLONE 40 MG INJ IV SCH (09:35)
[2016-11-03] MEDS: LACTOBACILLUS RHAMNOSUS CAP GTB SCH ×2 (09:35→13:46)
[2016-11-03] MEDS: LORAZEPAM 0.5 MG TAB PO SCH (09:35)
[2016-11-03] MEDS: RIFAXIMIN 200 MG TAB PO SCH ×2 (09:35→13:46)
[2016-11-03] MEDS: SODIUM CHLORIDE 1 GM TAB PO SCH (09:35)
[2016-11-03] MEDS: SILVER SULFADIAZINE 1% 25 GM CR TOP SCH (09:35)
[2016-11-03] MEDS: COLLAGENASE 30 GM TUBE TOP SCH (09:36)
--- NOTE | 2016-11-03 10:29 | CONS ---
Date/Time of Note Date/Time of Note DATE: 11/03/16 TIME: 10:25 Assessment/Plan Assessment/Plan Chief Complaint/Hosp Course Alert, looks comfortable denies pain discomfort, at bedside. Temperature 98.3 pulse 81 respirations 20 blood pressure 129/68 saturation 100 on 30 FiO2 WBC 7.9 H&H 8.5 and 26 platelets 283 no shift BN 24 creatinine 0.91 Microbiology urine culture on November 01 grew Klebsiella pneumonia susceptible to all antibiotics Indwelling's: Trach PEG Chest x-ray this morning revealed small left pleural effusion and left basilar atelectasis versus pneumonia also right basilar atelectasis Antimicrobials: Zosyn vancomycin Physical examination: This is a chronically ill-appearing elderly man who is awake in no distress. Head atraumatic normocephalic, sclera nonicteric, bugle mucosa dry. Neck is supple tracheostomy present. Chest rise symmetrical breath sounds diminished basis. Heart S1-S2. Abdomen soft, bowel tones present , G-tube site clean. Extremities without cyanosis Assessment: 1. Status post septic shock 2. Urinary tract infection 3. Chronic respiratory failure possible healthcare associated pneumonia 4. Status post recent C. difficile colitis 5. Follicular cell lymphoma 6. Drug-induced myasthenia gravis Plan: Remains hemodynamically stable and overall improving, will restart oral vancomycin given ongoing diarrhea, continue present care, antibiotics staff/pt/ Problems: Consultation Date/Type/Reason Admit Date/Time Nov 01, 2016 at 22:01 Initial Consult Date 11/02/16 Type of Consultation: ID Exam/Review of Systems Vital Signs Vitals Vital Signs Date Time Temp Pulse Resp B/P Pulse Ox O2 Delivery O2 Flow Rate FiO2 11/03/16 08:00 101 11/03/16 07:00 20 129/68 100 11/03/16 06:00 Mechanical Ventilator 11/03/16 05:15 30 11/03/16 00:00 98.3 Intake and Output 11/02/16 11/02/16 11/03/16 15:00 23:00 07:00 Intake Total 610.30 ml 475 ml 1000 ml Output Total 1410 ml 755 ml 900 ml Balance -799.70 ml -280 ml 100 ml Results Result Diagram: 11/03/16 0600 11/03/16 0600 Results 24 hrs Laboratory Tests Test 11/03/16 06:00 White Blood Count 7.9 # Red Blood Count 2.76 L Hemoglobin 8.5 L Hematocrit 26.0 L Mean Corpuscular Volume 94.2 Mean Corpuscular Hemoglobin 30.8 Mean Corpuscular Hemoglobin Concent 32.7 Red Cell Distribution Width 13.4 Platelet Count 283 Mean Platelet Volume 9.6 Neutrophils % 61.9 Lymphocytes % 20.3 Monocytes % 14.3 H Eosinophils % 1.8 Basophils % 0.4 Nucleated Red Blood Cells % 0.0 Neutrophils # 4.9 Lymphocytes # 1.6 Monocytes # 1.1 H Eosinophils # 0.1 Basophils # 0.0 Nucleated Red Blood Cells # 0.0 Sodium Level 141 Potassium Level 3.4 L Chloride Level 104 Carbon Dioxide Level 27 Anion Gap 13 Blood Urea Nitrogen 24 H Creatinine 0.91 Glucose Level 95 Lactic Acid Level 1.1 Calcium Level 8.6 Phosphorus Level 2.7 Magnesium Level 2.1 Medications Medications Current Medications Ferrous Sulfate (Feosol Liquid Cup) 300 mg BID GTB Last administered on 09:34; Admin Dose 300 MG; Start 11/02/16 at 09:00 Acetaminophen (Tylenol Liquid) 650 mg Q4H PRN GTB PAIN AND OR ELEVATED TEMP; Start 11/02/16 at 00:30 Lansoprazole (Prevacid) 30 mg DAILY@06 NGT Last administered on 11/03/16 06:20 ; Admin Dose 30 MG; Start 11/02/16 at 06:00 Lactobacillus Acidophilus/ Rhamnosus 1 cap 1 cap TID GTB Last administered on 09:35; Admin Dose 1 CAP; Start 11/02/16 at 09:00 Norepinephrine 250 ml @ 1.875 mls/ hr TITRATE IV ; Start 11/02/16 at 00:30 Piperacillin Sod/ Tazobactam Sod (Zosyn 3.375gm/ 100 ml (Pmx)) 100 ml @ 200 mls /hr Q6 IVPB Last administered on 11/03/16 06:21; Admin Dose 200 MLS/HR; Start 11/02/16 at 06:00 Acetazolamide (Diamox) 500 mg DAILY IV Last administered on 11/03/16 09:35; Admin Dose 500 MG; Start 11/02/16 at 09:00 Rifaximin (Xifaxan) 200 mg TID PO Last administered on 11/03/16 09:35; Admin Dose 200 MG; Start 11/02/16 at 09:00 Silver Sulfadiazine 1 applic 1 applic BID TOP Last administered on 11/03/16 09 :35; Admin Dose 1 APPLIC; Start 11/02/16 at 09:00 Norepinephrine 16 mg/Dextrose 500 ml @ 1.87 mls/hr TITRATE IV Last administered on 11/02/16 02:27; Admin Dose 3.75 MLS/HR; Start 11/02/16 at 01:00 ; Status Future Hold Vancomycin HCl (Vancocin) 250 ml @ 125 mls/hr Q12H IVPB Last administered on 01:03; Admin Dose 125 MLS/HR; Start 11/02/16 at 01:30 Miscellaneous Information (*Rx Drug Level Order Reminder*) VANCO TROUGH @ 1, 230 ON... ONCE ONCE XX ; Start 11/03/16 at 12:30; Stop 11/03/16 at 12:31 Collagenase (Santyl) 1 applic DAILY TOP Last administered on 11/03/16 09:36; Admin Dose 1 APPLIC; Start 11/02/16 at 12:00 Collagenase (Santyl) 1 applic PRN PRN TOP WOUND CARE; Start 11/02/16 at 11:00 Miscellaneous Information (Pending Santyl Order For Wound Care) This patient royal... PRN PRN XX WOUND CARE; Start 11/02/16 at 11:00 Methylprednisolone Sodium Succinate (Solu-Medrol) 20 mg DAILY IV Last administered on 11/03/16 09:35; Admin Dose 20 MG; Start 11/02/16 at 11:30 Chlorhexidine Gluconate (Peridex) 15 ml Q12 MT Last administered on 11/03/16 09:34; Admin Dose 15 ML; Start 11/02/16 at 21:00 Loratadine (Claritin) 10 mg DAILY GTB Last administered on 11/03/16 09:35; Admin Dose 10 MG; Start 11/03/16 at 09:00 Lorazepam (Ativan) 0.5 mg BID PO Last administered on 11/03/16 09:35; Admin Dose 0.5 MG; Start 11/02/16 at 21:00 Morphine Sulfate (morphine) 2 mg Q8 PRN IV PAIN; Start 11/02/16 at 20:00 Ondansetron HCl (Zofran Tab) 8 mg Q8 PRN GTB NAUSEA AND/OR VOMITING; Start at 20:00 Sodium Chloride (Nacl) 1 gm BID PO Last administered on 11/03/16t 09:35; Admin Dose 1 GM; Start 11/02/16 at 21:00 TROY GONSALVES NP Nov 03, 2016 10:28
--- NOTE | 2016-11-03 11:22 | CONS ---
Date/Time of Note Date/Time of Note DATE: 11/03/16 TIME: 11:15 Consult Date/Type/Reason Admit Date/Time Nov 01, 2016 at 22:01 Initial Consult Date 11/02/16 Type of Consultation: Pulmonary ICU Subjective Patient comfortable this morning awake alert oriented Objective Vital Signs Date Time Temp Pulse Resp B/P Pulse Ox O2 Delivery O2 Flow Rate FiO2 11/03/16 10:00 86 20 141/67 100 Mechanical Ventilator 11/03/16 08:00 97.7 11/03/16 08:00 30 Intake and Output 11/02/16 11/02/16 11/03/16 14:59 22:59 06:59 Intake Total 719.67 ml 425 ml 950 ml Output Total 1300 ml 790 ml 975 ml Balance -580.33 ml -365 ml -25 ml Exam GENERAL: Elderly gentleman comfortable at rest mechanical ventilation awake alert appears comfortable VITAL SIGNS: per chart NECK: Supple. No JVD or lymphadenopathy. CARDIAC EXAM: S1, S2. No added sounds or murmurs. CHEST: Diminished air entry both lung [place] ABDOMEN: Soft, nontender. No guarding or rebound. EXTREMITIES: No cyanosis, clubbing or edema. NEUROLOGIC: Generalized weakness. Results/Medications Result Diagram: 11/03/16 0600 11/03/16 0600 Results 24 hrs Laboratory Tests Test 11/03/16 06:00 White Blood Count 7.9 # Red Blood Count 2.76 L Hemoglobin 8.5 L Hematocrit 26.0 L Mean Corpuscular Volume 94.2 Mean Corpuscular Hemoglobin 30.8 Mean Corpuscular Hemoglobin Concent 32.7 Red Cell Distribution Width 13.4 Platelet Count 283 Mean Platelet Volume 9.6 Neutrophils % 61.9 Lymphocytes % 20.3 Monocytes % 14.3 H Eosinophils % 1.8 Basophils % 0.4 Nucleated Red Blood Cells % 0.0 Neutrophils # 4.9 Lymphocytes # 1.6 Monocytes # 1.1 H Eosinophils # 0.1 Basophils # 0.0 Nucleated Red Blood Cells # 0.0 Sodium Level 141 Potassium Level 3.4 L Chloride Level 104 Carbon Dioxide Level 27 Anion Gap 13 Blood Urea Nitrogen 24 H Creatinine 0.91 Glucose Level 95 Lactic Acid Level 1.1 Calcium Level 8.6 Phosphorus Level 2.7 Magnesium Level 2.1 Medications Current Medications Ferrous Sulfate (Feosol Liquid Cup) 300 mg BID GTB Last administered on 09:34; Admin Dose 300 MG; Start 11/02/16 at 09:00 Acetaminophen (Tylenol Liquid) 650 mg Q4H PRN GTB PAIN AND OR ELEVATED TEMP; Start 11/02/16 at 00:30 Lansoprazole (Prevacid) 30 mg DAILY@06 NGT Last administered on 11/03/16 06:20 ; Admin Dose 30 MG; Start 11/02/16 at 06:00 Lactobacillus Acidophilus/ Rhamnosus 1 cap 1 cap TID GTB Last administered on 09:35; Admin Dose 1 CAP; Start 11/02/16 at 09:00 Norepinephrine 250 ml @ 1.875 mls/ hr TITRATE IV ; Start 11/02/16 at 00:30 Piperacillin Sod/ Tazobactam Sod (Zosyn 3.375gm/ 100 ml (Pmx)) 100 ml @ 200 mls /hr Q6 IVPB Last administered on 11/03/16 06:21; Admin Dose 200 MLS/HR; Start 11/02/16 at 06:00 Acetazolamide (Diamox) 500 mg DAILY IV Last administered on 11/03/16 09:35; Admin Dose 500 MG; Start 11/02/16 at 09:00 Rifaximin (Xifaxan) 200 mg TID PO Last administered on 11/03/16 09:35; Admin Dose 200 MG; Start 11/02/16 at 09:00 Silver Sulfadiazine 1 applic 1 applic BID TOP Last administered on 11/03/16 09 :35; Admin Dose 1 APPLIC; Start 11/02/16 at 09:00 Norepinephrine 16 mg/Dextrose 500 ml @ 1.87 mls/hr TITRATE IV Last administered on 11/02/16 02:27; Admin Dose 3.75 MLS/HR; Start 11/02/16 at 01:00 ; Status Future Hold Vancomycin HCl (Vancocin) 250 ml @ 125 mls/hr Q12H IVPB Last administered on 01:03; Admin Dose 125 MLS/HR; Start 11/02/16 at 01:30 Miscellaneous Information (*Rx Drug Level Order Reminder*) VANCO TROUGH @ 1, 230 ON... ONCE ONCE XX ; Start 11/03/16 at 12:30; Stop 11/03/16 at 12:31 Collagenase (Santyl) 1 applic DAILY TOP Last administered on 11/03/16 09:36; Admin Dose 1 APPLIC; Start 11/02/16 at 12:00 Collagenase (Santyl) 1 applic PRN PRN TOP WOUND CARE; Start 11/02/16 at 11:00 Miscellaneous Information (Pending Santyl Order For Wound Care) This patient royal... PRN PRN XX WOUND CARE; Start 11/02/16 at 11:00 Methylprednisolone Sodium Succinate (Solu-Medrol) 20 mg DAILY IV Last administered on 11/03/16 09:35; Admin Dose 20 MG; Start 11/02/16 at 11:30 Chlorhexidine Gluconate (Peridex) 15 ml Q12 MT Last administered on 11/03/16 09:34; Admin Dose 15 ML; Start 11/02/16 at 21:00 Loratadine (Claritin) 10 mg DAILY GTB Last administered on 11/03/16 09:35; Admin Dose 10 MG; Start 11/03/16 at 09:00 Lorazepam (Ativan) 0.5 mg BID PO Last administered on 11/03/16 09:35; Admin Dose 0.5 MG; Start 11/02/16 at 21:00 Morphine Sulfate (morphine) 2 mg Q8 PRN IV PAIN; Start 11/02/16 at 20:00 Ondansetron HCl (Zofran Tab) 8 mg Q8 PRN GTB NAUSEA AND/OR VOMITING; Start at 20:00 Sodium Chloride (Nacl) 1 gm BID PO Last administered on 11/03/16 09:35; Admin Dose 1 GM; Start 11/02/16 at 21:00 Vancomycin HCl (Vancomycin Oral Syringe) 125 mg Q6 PO ; Start 11/03/16 at 12:00 Assessment/Plan Chief Complaint/Hosp Course Assessment 1. Status post septic shock etiology unclear differential does include C. difficile colitis 2. Myasthenia gravis secondary to therapy for follicular lymphoma 3. Follicular lymphoma currently on Rituxan 4. Vent dependent respiratory failure was doing well until recent deterioration most recently was on mechanical ventilation for 24 hours. 5. Dysphagia with G-tube Plan 1. ID recommendations broad-spectrum antibiotics 2. Currently off vasopressors months blood pressure keep MAP greater than 65 3. Mechanical ventilation, not for weaning at present. 4. Resume tube feeding 5. DVT and GI prophylaxis 6. Hematology oncology recommendations regarding management of follicular lymphoma Disposition Continue ICU care Critical care time 40 minutes consider transfer back to [place]. Stable from pulmonary standpoint Problems: ROBLES ANDINO MD, [facility] Nov 03, 2016 11:22
--- NOTE | 2016-11-03 12:18 | PN ---
Date/Time of Note Date/Time of Note DATE: 11/03/16 TIME: 12:13 Assessment/Plan VTE Prophylaxis VTE Prophylaxis Intervention: SCD's Lines/Catheters IV Catheter Type (from [facility]): Peripheral IV Urinary Cath still in place: Yes Reason Cath still needed: urinary retention Assessment/Plan Chief Complaint/Hosp Course Patient's continues to have diarrhea and copious secretions from tracheostomy, weaned off levo fed. Assessment/Plan -Possible sepsis, will obtain urine and blood cultures, continue broad-spectrum antibiotics, Dr. Ann is following an infection disease consultation. Continue IV fluids, pressors, ICU care. -Ventilator dependent respiratory failure, Dr. Myers is following from pulmonology standpoint. -Follicular lymphoma, patient is followed by Dr. Cordova in oncology consultation. -Drug induced myasthenia gravis -Immunocompromise state -History of C. difficile colitis Further recommendations based on clinical course. Plan of care discussed with Dr. Sorto. Problems: Exam/Review of Systems Vital Signs Vitals Vital Signs Date Time Temp Pulse Resp B/P Pulse Ox O2 Delivery O2 Flow Rate FiO2 11/03/16 10:00 86 20 141/67 100 Mechanical Ventilator 11/03/16 10:00 30 11/03/16 08:00 97.7 Intake and Output 11/02/16 11/02/16 11/03/16 15:00 23:00 07:00 Intake Total 610.30 ml 475 ml 1000 ml Output Total 1410 ml 755 ml 900 ml Balance -799.70 ml -280 ml 100 ml Exam Constitutional: alert, non-verbal, oriented Head: normocephalic Neck: supple Respiratory: diminished breath sounds Cardiovascular: nl pulses Gastrointestinal: non-tender, other (G-tube), soft Musculoskeletal: muscle weakness Neurological: nl mental status Results Result Diagram: 11/03/16 0600 11/03/16 0600 Results 24 hrs Laboratory Tests Test 11/03/16 06:00 White Blood Count 7.9 # Red Blood Count 2.76 L Hemoglobin 8.5 L Hematocrit 26.0 L Mean Corpuscular Volume 94.2 Mean Corpuscular Hemoglobin 30.8 Mean Corpuscular Hemoglobin Concent 32.7 Red Cell Distribution Width 13.4 Platelet Count 283 Mean Platelet Volume 9.6 Neutrophils % 61.9 Lymphocytes % 20.3 Monocytes % 14.3 H Eosinophils % 1.8 Basophils % 0.4 Nucleated Red Blood Cells % 0.0 Neutrophils # 4.9 Lymphocytes # 1.6 Monocytes # 1.1 H Eosinophils # 0.1 Basophils # 0.0 Nucleated Red Blood Cells # 0.0 Sodium Level 141 Potassium Level 3.4 L Chloride Level 104 Carbon Dioxide Level 27 Anion Gap 13 Blood Urea Nitrogen 24 H Creatinine 0.91 Glucose Level 95 Lactic Acid Level 1.1 Calcium Level 8.6 Phosphorus Level 2.7 Magnesium Level 2.1 Medications Medications Current Medications Ferrous Sulfate (Feosol Liquid Cup) 300 mg BID GTB Last administered on 09:34; Admin Dose 300 MG; Start 11/02/16 at 09:00 Acetaminophen (Tylenol Liquid) 650 mg Q4H PRN GTB PAIN AND OR ELEVATED TEMP; Start 11/02/16 at 00:30 Lansoprazole (Prevacid) 30 mg DAILY@06 NGT Last administered on 11/03/16 06:20 ; Admin Dose 30 MG; Start 11/02/16 at 06:00 Lactobacillus Acidophilus/ Rhamnosus 1 cap 1 cap TID GTB Last administered on 09:35; Admin Dose 1 CAP; Start 11/02/16 at 09:00 Norepinephrine 250 ml @ 1.875 mls/ hr TITRATE IV ; Start 11/02/16 at 00:30 Piperacillin Sod/ Tazobactam Sod (Zosyn 3.375gm/ 100 ml (Pmx)) 100 ml @ 200 mls /hr Q6 IVPB Last administered on 11/03/16 06:21; Admin Dose 200 MLS/HR; Start 11/02/16 at 06:00 Acetazolamide (Diamox) 500 mg DAILY IV Last administered on 11/03/16 09:35; Admin Dose 500 MG; Start 11/02/16 at 09:00 Rifaximin (Xifaxan) 200 mg TID PO Last administered on 11/03/16 09:35; Admin Dose 200 MG; Start 11/02/16 at 09:00 Silver Sulfadiazine 1 applic 1 applic BID TOP Last administered on 11/03/16 09 :35; Admin Dose 1 APPLIC; Start 11/02/16 at 09:00 Norepinephrine 16 mg/Dextrose 500 ml @ 1.87 mls/hr TITRATE IV Last administered on 11/02/16 02:27; Admin Dose 3.75 MLS/HR; Start 11/02/16 at 01:00 ; Status Future Hold Vancomycin HCl (Vancocin) 250 ml @ 125 mls/hr Q12H IVPB Last administered on 01:03; Admin Dose 125 MLS/HR; Start 11/02/16 at 01:30 Miscellaneous Information (*Rx Drug Level Order Reminder*) VANCO TROUGH @ 1, 230 ON... ONCE ONCE XX ; Start 11/03/16 at 12:30; Stop 11/03/16 at 12:31 Collagenase (Santyl) 1 applic DAILY TOP Last administered on 11/03/16 09:36; Admin Dose 1 APPLIC; Start 11/02/16 at 12:00 Collagenase (Santyl) 1 applic PRN PRN TOP WOUND CARE; Start 11/02/16 at 11:00 Miscellaneous Information (Pending Santyl Order For Wound Care) This patient royal... PRN PRN XX WOUND CARE; Start 11/02/16 at 11:00 Methylprednisolone Sodium Succinate (Solu-Medrol) 20 mg DAILY IV Last administered on 11/03/16 09:35; Admin Dose 20 MG; Start 11/02/16 at 11:30 Chlorhexidine Gluconate (Peridex) 15 ml Q12 MT Last administered on 11/03/16 09:34; Admin Dose 15 ML; Start 11/02/16 at 21:00 Loratadine (Claritin) 10 mg DAILY GTB Last administered on 11/03/16 09:35; Admin Dose 10 MG; Start 11/03/16 at 09:00 Lorazepam (Ativan) 0.5 mg BID PO Last administered on 11/03/16 09:35; Admin Dose 0.5 MG; Start 11/02/16 at 21:00 Morphine Sulfate (morphine) 2 mg Q8 PRN IV PAIN; Start 11/02/16 at 20:00 Ondansetron HCl (Zofran Tab) 8 mg Q8 PRN GTB NAUSEA AND/OR VOMITING; Start at 20:00 Sodium Chloride (Nacl) 1 gm BID PO Last administered on 11/03/16 09:35; Admin Dose 1 GM; Start 11/02/16 at 21:00 Vancomycin HCl (Vancomycin Oral Syringe) 125 mg Q6 PO ; Start 11/03/16 at 12:00 ELIN STERLING Nov 03, 2016 12:18
[2016-11-03] MEDS ORDERED: POTASSIUM CHLORIDE 20 MEQ POWDER FOR ORAL SOLN GTB ONE (12:30)
[2016-11-03] MEDS: VANCOMYCIN HCL 250 MG/5ML POSYG PO SCH ×2 (12:48→17:51)
== END 2016-11-03 21:53 | disposition hospice, inpatient (51) | DRG 871 ==
LOC: ICU 22:01
PROVIDERS: ADMIT Internal Medicine; ATTEND Internal Medicine
PROC: 5A1945Z Respiratory Ventilation, 24-96 Consecutive Hours (ICD-10-PCS; principal; 2016-11-01)
PROC: 4A033R1 Measurement of Arterial Saturation, Peripheral, Percutaneous Approach (ICD-10-PCS; 2016-11-02)
DX: A41.9 Sepsis, unspecified organism (principal); R65.21 Severe sepsis with septic shock; J96.21 Acute and chronic respiratory failure with hypoxia; Z99.11 Dependence on respirator [ventilator] status; Z93.0 Tracheostomy status; C82.10 Follicular lymphoma grade II, unspecified site; N39.0 Urinary tract infection, site not specified; I10 Essential (primary) hypertension; Z93.1 Gastrostomy status; R13.10 Dysphagia, unspecified; I48.0 Paroxysmal atrial fibrillation; G70.00 Myasthenia gravis without (acute) exacerbation; D89.9 Disorder involving the immune mechanism, unspecified; R19.7 Diarrhea, unspecified; Z92.21 Personal history of antineoplastic chemotherapy; Z86.718 Personal history of other venous thrombosis and embolism; Z86.711 Personal history of pulmonary embolism
CPT/HCPCS: 36600; 71010; 80048; 80202; 81001; 82803; 83605; 83735; 84100; 85025; 87040; 87070; 87075; 87081; 87086; 94002; 94003; 94640; J1120; J2543; J2920; J3370; J7030